=== PATIENT | female | born 1980 | race African-American/Black ===

== ENCOUNTER 2023-11-21 13:01 | Emergency (ER) | payer MEDICAID, SELFPAY ==
[2023-11-21 13:09] VITALS: BP 120/80; PULSE 67; RESP 14; TEMP 36.2; O2SAT 98; BMI 24.9
--- NOTE | 2023-11-21 13:41 | XR_ITS ---
Patient: ANDREW ENCINAS Facility:?[facility] Patient ID:?[id number] Site Patient ID:?[id number]. Site :?[id number] Study:?XRay-Abdomen 2 VIEW-11/21/2023 2:29:24 PM Ordering Physician:EMMIE Final Report: Indication: ABD PAIN 2 MONTHS Technique: One upright view, 2 supine views of the abdomen.. Comparison: None. Findings: Nonobstructive bowel gas pattern. No large pneumoperitoneum. Visualized lung bases are clear. Mild stool burden in the descending colon. Impression: Mild stool burden in the descending colon. Nonobstructive bowel gas pattern. Dictated by Sandoval Borjas MD @ 11/21/2023 2:46:12 PM Signed by:?Sandoval Borjas MD @11/21/2023 2:46:12 PM (Electronic Signature)
--- NOTE | 2023-11-21 13:46 | ED.GENADULT ---
HPI - General Adult General Chief complaint: Abdominal Pain Stated complaint: stomach pain Time Seen by Provider: 11/21/23 13:23 Source: patient Mode of arrival: ambulatory Limitations: no limitations History of Present Illness HPI narrative: Patient is a 43-year-old woman who presents for evaluation of abdominal pain which has been ongoing for the past couple of months. She says she has pain everyday the, it is in the periumbilical and epigastric area. It is worsened with eating or drinking. She does note a history of constipation, has bowel movement about twice a week. She uses MiraLax sporadically. She gets regular periods, does not note any change in her abdominal pain with periods. She does note that she has heavy bleeding and periods last about 10 days, but this is an unrelated issue. She has had some nausea, she has had no vomiting. No diarrhea, black or bloody stools. No urinary symptoms. No new sexual partners. Has not been seen for this previously, has not tried any medications. No abdominal surgeries. Related Data Previous Rx's Medication Instructions Recorded omeprazole 40 mg capsule,delayed 40 mg PO DAILY #14 caps 11/21/23 release potassium chloride 20 mEq 20 meq PO DAILY #10 tabs 11/21/23 tablet,extended release Allergies Allergy/AdvReac Type Severity Reaction Status Date / Time No Known Drug Allergies Allergy Verified 11/21/23 13:13 Review of Systems Status of ROS: Reports: 10 or more systems reviewed and unremarkable except as noted in History and below [facility] Social History Smoking Status: Never smoker Do you use any of these nicotine containing products: None How often do you have a drink containing alcohol: never How often do you have six or more drinks on one occasion: Never AUDIT-C Alcohol total score: 0 Non-prescribed substance use: denies use service: No Exam Narrative: Exam Narrative: Vital signs as noted above. In general, an alert, well-appearing patient. Head: Normocephalic, atraumatic. Eyes: Pupils are equal reactive. Extraocular movements are full. Conjunctivae are normal. ENT: Mucous membranes are moist. Throat is normal. Neck: Supple without lymphadenopathy. Heart: Regular rate and rhythm. No murmur or rub. Lungs: Clear bilaterally. No increased work of breathing, crackles or wheezes. Abdomen: Soft, nondistended. Some epigastric and periumbilical tenderness without rebound guarding or rigidity. No lower abdominal tenderness. Extremities: Well perfused. No edema. No calf tenderness. Pulses intact. Neurologic: Patient is alert and oriented to person and place. Speech is fluent. Face is symmetric. Moves all extremities equally. Affect: Normal. Skin: Warm and dry. Well perfused. Const: Vital Signs, click to edit/add: Vital Signs - 24 hr 11/21/23 13:09 11/21/23 16:25 Temperature 97.1 F L Pulse Rate [Right Pulse Oximeter] 67 65 Respiratory Rate 14 18 Blood Pressure [Ri ght Upper Arm] 120/80 140/93 H Pulse Oximetry 98 100 Oxygen Delivery Me thod Room Air Room Air Course Course ED Course: Abdominal exam is benign, patient presents for daily pain for couple of months without red flag symptoms. Will check some basic labs, I think it is reasonable to do an x-ray and see if she has significant stool burden as constipation may be playing a role in this. Also consider gastritis, peptic ulcer disease, gallbladder or pancreatic disease. Workup here is pretty unremarkable, if her sodium was normal but potassium was low at 2.8. Magnesium was added on but is pending. The remainder of her metabolic panel was unremarkable. CBC was normal, white count of 4.5 hemoglobin of 12.5. UA was negative, UPT was negative. Liver function tests CRP and lipase are all normal. Abdominal x-ray shows normal bowel gas pattern, she does not have a significant stool burden. Final radiology read as follows:Findings: Nonobstructive bowel gas pattern. No large pneumoperitoneum. Visualized lung bases are clear. Mild stool burden in the descending colon. Impression: Mild stool burden in the descending colon. Nonobstructive bowel gas pattern. I have discussed all this with her. For now, I have recommended that we try a proton pump inhibitor for the next couple weeks, I have given her potassium replacement for the next 10 days or so, she had 50 mEq here and 20 a day for the next 10 days. Primary care follow-up in the next 1-2 weeks for recheck. Return at any time for acute worsening symptoms, bloody stools, severe pain, fevers vomiting etcetera. Vital Signs Vital signs: Initial Vital Signs Temperature 97.1 F L 11/21/23 13:09 Temperature Source Temporal Artery Scan 11/21/23 13:09 Pulse Rate 67 11/21/23 13:09 Pulse Rhythm Regular 11/21/23 13:09 Pulse Strength 3+ Normal 11/21/23 13:09 Respiratory Rate 14 11/21/23 13:09 Blood Pressure 120/80 11/21/23 13:09 Blood Pressure Mean 93 11/21/23 13:09 Blood Pressure Position Sitting 11/21/23 13:09 Pulse Oximetry 98 11/21/23 13:09 Oxygen Delivery Method Room Air 11/21/23 13:09 Vital Signs Temperature 97.1 F L 11/21/23 13:09 Pulse Rate 67 11/21/23 13:09 Respiratory Rate 14 11/21/23 13:09 Blood Pressure 120/80 11/21/23 13:09 Pulse Oximetry 98 11/21/23 13:09 Oxygen Delivery Method Room Air 11/21/23 13:09 Temperature 97.1 F L 11/21/23 13:09 Pulse Rate 65 11/21/23 16:25 Respiratory Rate 18 11/21/23 16:25 Blood Pressure 140/93 H 11/21/23 16:25 Pulse Oximetry 100 11/21/23 16:25 Oxygen Delivery Method Room Air 11/21/23 16:25 Medications Administered Medications: Discontinued Medications Generic Name Dose Route Start Last Admin Trade Name Matt PRN Reason Stop Dose Admin Potassium Bicarbonate 50 meq 11/21/23 14:58 11/21/23 15:10 Potassium Bicarb 25 Meq Effervescent Tab PO 11/21/23 14:59 50 meq ONCE ONE Administration Medical Decision Making Lab Data Labs: Lab Results 11/21/23 11/21/23 Range/Units 13:58 15:15 WBC 4.55 (4.50-11.00) K/uL RBC 4.15 (4.00-5.20) m/uL Hgb 12.5 (12.0-16.0) gm/dL Hct 36.9 (33.0-51.0) % MCV 89 (80-100) fL MCH 30 (26-34) pg MCHC 34 (32-36) gm/dL RDW Coeff of [place] 12.9 (11.5-15.5) % Plt Count 239 (140-440) K/uL Neut % (Auto) 55.9 (42.0-72.0) % Lymph % (Auto) 34.9 (20-44) % [place] % (Auto) 7.5 (0.0-11.0) % Eos % (Auto) 1.1 (0.0-7.0) % Baso % (Auto) 0.4 (0.0-3.0) % Neut # (Auto) 2.54 (1.7-7.0) K/uL Lymph # (Auto) 1.59 (0.90-2.90) K/uL [place] # (Auto) 0.30 (0.00-0.90) K/UL Eos # (Auto) 0.05 (0.00-0.50) K/uL Baso # (Auto) 0.02 (0.00-0.30) K/uL Abs Immat Gran (auto) 0.01 (0.00-0.30) K/uL Imm/Tot Granulo (auto) 0.2 % Sodium 139 (135-149) mmol/L Potassium 2.8 L* (3.6-5.1) mmol/L Chloride 106 (96-114) mmol/L Carbon Dioxide 25 (20-32) mmol/L Anion Gap 8 (7-15) mEq/L BUN 9 (5-24) mg/dL Creatinine 0.6 (0.5-1.5) mg/dL Estimated Creat Clear 114.34 Estimated GFR 115 ml/min Glucose 95 (60-115) mg/dL Calcium 8.8 (8.4-10.6) mg/dL Total Bilirubin 0.6 (0.1-1.5) mg/dL Direct Bilirubin 0.2 (0.0-0.5) mg/dL AST 21 (12-35) U/L ALT 9 (4-35) U/L Alkaline Phosphatase 46 (40-150) U/L C-Reactive Protein < 0.5 L (0.5-1.0) mg/dL Total Protein 7.4 (6.0-8.3) g/dL Albumin 4.3 (3.3-5.0) g/dL Lipase 61 (23-300) U/L Urine Color Yellow (Yellow) Urine Appearance Clear (Clear) Urine pH 6.0 (5.0-8.5) Ur Specific [place] 1.025 (1.000-1.030) Urine Protein Negative (Negative) Urine Glucose (UA) Negative (Negative) Urine Ketones Negative (Negative) Urine Blood Negative (Negative) Urine Nitrite Negative (Negative) Urine Bilirubin Negative (Negative) Urine Urobilinogen 1.0 (0.2-1.0) Ur Leukocyte Esterase Negative (Negative) Urine RBC 0-2 (0-2) Urine WBC 0-2 (0-5) Ur Squamous Epith Cells Moderate A (None-Few) Urine Bacteria Moderate A (None) Urine HCG, Qual Negative (Negative) Discharge Plan Discharge Clinical Impression: Abdominal pain, Hypokalemia Patient Disposition: Home, Self-Care Condition: Stable Instructions: Hypokalemia (ED), Abdominal Pain (ED) Additional Instructions: I would recommend a trial of omeprazole, 40 mg daily as prescribed. Please follow-up with primary care in the next 1-2 weeks for recheck. If you have significant worsening at any time, new symptoms such as vomiting, fever, black or bloody stools, return to the emergency department. Your potassium was low today. I would recommend replacement over the next 7-10 days, increase potassium rich foods, recheck with primary care. Your other labs were normal, and your x-ray was normal as well. Prescriptions: New potassium chloride 20 mEq tablet extended release 20 meq PO DAILY Qty: 10 2RF omeprazole 40 mg capsule,delayed release(DR/EC) 40 mg PO DAILY Qty: 14 2RF Follow Up/Referrals: Alysha Farmer, MEHRAN [Primary Care Provider] - Stand Alone Forms: [employer] Info Instructions
[2023-11-21 14:08] LABS: Basophils Absolute Auto 0.02 K/uL (0.00-0.30); Basophils Percent Auto 0.4 % (0.0-3.0); Eosinophils Absolute Auto 0.05 K/uL (0.00-0.50); Eosinophils Percent Auto 1.1 % (0.0-7.0); Hematocrit 36.9 % (33.0-51.0); Hemoglobin* 12.5 gm/dL (12.0-16.0); Immature Granulocytes Abs Auto 0.01 K/uL (0.00-0.30); Immature Granulocytes Pct Auto 0.2 %; Lymphocytes Absolute Auto 1.59 K/uL (0.90-2.90); Lymphocytes Percent Auto 34.9 % (20-44); Mean Corpuscular HGB Conc 34 gm/dL (32-36); Mean Corpuscular Hemoglobin 30 pg (26-34); Mean Corpuscular Volume 89 fL (80-100); Monocytes Percent Auto 7.5 % (0.0-11.0); Neutrophils Absolute Auto 2.54 K/uL (1.7-7.0); Neutrophils Percent Auto 55.9 % (42.0-72.0); Platelet Count* 239 K/uL (140-440); RDW Coefficient of Variation % 12.9 % (11.5-15.5); Red Blood Count 4.15 m/uL (4.00-5.20); White Blood Count* 4.55 K/uL (4.50-11.00)
[2023-11-21 14:13] LABS: Slide Review Reflex No
[2023-11-21 14:28] LABS: Chloride* 106 mmol/L (96-114); Sodium* 139 mmol/L (135-149)
[2023-11-21 14:30] LABS: Albumin* 4.3 g/dL (3.3-5.0)
[2023-11-21 14:31] LABS: Creatinine* 0.6 mg/dL (0.5-1.5); Est. Creatinine Clearance* 114.34; Estimated Glomerular Filt Rate 115 ml/min; Lipase* 61 U/L (23-300)
[2023-11-21 14:32] LABS: Anion Gap 8 mEq/L (7-15); Aspartate Amino Transferase* 21 U/L (12-35); Bilirubin Direct* 0.2 mg/dL (0.0-0.5); Bilirubin Total* 0.6 mg/dL (0.1-1.5); Blood Urea Nitrogen* 9 mg/dL (5-24); Calcium* 8.8 mg/dL (8.4-10.6); Carbon Dioxide* 25 mmol/L (20-32); Glucose* 95 mg/dL (60-115); Total Protein* 7.4 g/dL (6.0-8.3)
[2023-11-21 14:33] LABS: Alanine Aminotransferase* 9 U/L (4-35); Alkaline Phosphatase* 46 U/L (40-150)
[2023-11-21 14:35] LABS: C Reactive Protein* < 0.5 mg/dL (0.5-1.0); Potassium* 2.8 mmol/L (3.6-5.1)
[2023-11-21] MEDS: POTASSIUM BICARB 25 MEQ EFFERVESCENT TAB 50 MEQ PO (15:10)
[2023-11-21 15:23] LABS: Appearance Urine Clear (Clear); Bilirubin Urine Negative (Negative); Blood Urine Negative (Negative); Color Urine Yellow (Yellow); Glucose Urine Negative (Negative); Ketones Urine Negative (Negative); Leukocyte Esterase Urine Negative (Negative); Nitrite Urine Negative (Negative); Protein Urine Negative (Negative); Specific Gravity Urine 1.025 (1.000-1.030)
[2023-11-21 15:25] LABS: Ur HCG Qualitative* Negative (Negative)
[2023-11-21 15:29] LABS: RBC Urine 0-2 (0-2); Squamous Epithelial Cell Urine Moderate (None-Few); WBC Urine 0-2 (0-5)
[2023-11-21 15:30] LABS: Bacteria Urine Moderate
[2023-11-21 16:25] VITALS: BP 140/93; PULSE 65; RESP 18; O2SAT 100
== END 2023-11-21 16:29 | disposition home or self-care (01) ==
PROVIDERS: Emergency Provider Emergency Medicine; PCP Nurse Practitioner Family
DX: R10.9 Unspecified abdominal pain (principal); E87.6 Hypokalemia
CPT/HCPCS: 36415; 74019; 80048; 80076; 81001; 81025; 83690; 83735; 85025; 86140; 87086; 99283; 99284; A9270

== ENCOUNTER 2024-04-15 00:28 | Emergency (ER) | payer MEDICAID, SELFPAY ==
[2024-04-15 00:33] VITALS: BP 160/73; PULSE 68; RESP 20; TEMP 36.7; O2SAT 99; BMI 24.3
[2024-04-15 00:45] VITALS: RESP 16; O2SAT 99
[2024-04-15 00:50] LABS: Appearance Urine Clear (Clear); Bilirubin Urine Negative (Negative); Blood Urine Negative (Negative); Color Urine Yellow (Yellow); Glucose Urine Negative (Negative); Ketones Urine Negative (Negative)
[2024-04-15 00:51] LABS: Leukocyte Esterase Urine Negative (Negative); Nitrite Urine Negative (Negative); Protein Urine Negative (Negative); Ur HCG Qualitative* Negative (Negative); Urobilinogen Urine 0.2 (0.2-1.0); pH Urine 5.5 (5.0-8.5)
--- NOTE | 2024-04-15 00:53 | ED_ITS ---
HPI - General Adult General Chief complaint: Unspecified Complaint, Adult Stated complaint: chest pain, headache Time Seen by Provider: 04/15/24 00:37 Source: patient Mode of arrival: ambulatory Limitations: no limitations History of Present Illness HPI narrative: 43-year-old female presents to the emergency department with a 2 week history of intermittent headache, myalgias and chest pain. Chest pain as intermittent and does not follow-up pattern. It is not exertional, not necessarily with rest, can somewhat be reproduced with palpation. No shortness of breath. No productive cough. No hemoptysis. Appetite normal. Has not tried taking any Tylenol or ibuprofen to help with symptoms. No neurological changes. No prior history of cardiac disease. No fever, no trauma or injury. No prior history of DVT or PE. Has not made an appointment with primary care. Comes in in the middle of the night on the weekend to emergency department as an out of network patient. Past medical history notable for depression, she does not know which antidepressants she takes but states that was started 2 weeks ago. Her daughter was able to go get the medication from the car for me and it is paroxetine 20 mg once daily. She also takes vitamin-D supplement. No prior history of abdominal surgeries. No allergies. Nonsmoker. ROS is notable for the generalized and chest symptoms as described above, otherwise denies times 12 systems. Related Data Home Medications ?Medication ?Instructions ?Recorded ?Confirmed paroxetine HCl 20 mg tablet 20 mg PO DAILY 04/15/24 04/15/24 Allergies Allergy/AdvReac Type Severity Reaction Status Date / Time No Known Drug Allergies Allergy Verified 04/15/24 00:36 [facility] Medical History (Updated 04/15/24 @ 04:22 by Camilla Cavazos MD) No significant past medical history Surgical History (Updated 04/15/24 @ 04:04 by Kyree Padilla RN) No significant past surgical history Social History Smoking Status: Never smoker Do you use any of these nicotine containing products: None Second hand tobacco smoke exposure: No How often do you have a drink containing alcohol: never How often do you have six or more drinks on one occasion: Never AUDIT-C Alcohol total score: 0 Non-prescribed substance use: denies use service: No Exam Const: Vital Signs, click to edit/add: Vital Signs - 24 hr 04/15/24 00:33 04/15/24 00:45 04/15/24 02:00 Temperature 98.0 F 98.0 F Pulse Rate [Right Pulse Oximeter] 68 74 Respiratory Rate 20 20 Respiratory Rate [ Generalized] 16 Blood Pressure [Ri ght Upper Arm] 160/73 H 132/74 Pulse Oximetry 99 99 Oxygen Delivery Me thod Room Air Room Air 04/15/24 02:00 Temperature 98.0 F Pulse Rate [Right Pulse Oximeter] 74 Respiratory Rate 20 Respiratory Rate [ Generalized] Blood Pressure [Ri ght Upper Arm] 132/74 Pulse Oximetry Oxygen Delivery Me thod Documenting provider has reviewed patient's vital signs: yes Common normals: no apparent distress and alert General appearance: cooperative, comfortable and well kempt HENMT: Common normals: normocephalic Head and scalp: normocephalic Face and sinus: normal facial exam Mouth: oral and palatal mucosa normal Throat: posterior oropharynx normal Eye: Common normals: conjunctivae normal General eye: normal appearance of both eyes Conjunctiva: conjunctiva(e) normal Neck & C-Spine: Common normals: full ROM and no lymphadenopathy Chest: Other: Pain can somewhat be reproduced with palpation of sternum. Resp: Common normals: normal respiratory effort and no use of accessory muscles Effort & inspection: able to speak in complete sentences Cardio: Common normals: regular rate, regular rhythm, S1 normal heart sound, S2 normal heart sound and no murmurs Rate: regular rate Rhythm: regular rhythm Heart sounds: S1 normal and S2 normal GI: Common normals: Normal to inspection, nondistended, normoactive bowel sounds present, soft to palpation, non-tender, no hepatosplenomegaly and no masses Palpation: soft and no hepatosplenomegaly Extremity: Common normals: normal to inspection, normal capillary refill and no pedal edema Neuro: Sensorium/orientation: alert Motor exam: strength 5/5 throughout and no movement abnormalities noted Psych: Common normals: thought process normal Appearance: well kempt Attitude: engaged Activity/motor behavior: appropriate eye contact Mood and affect: euthymic mood Thought process: normal thought process Insight: insight good Judgement: judgment good Skin: Common normals: no rashes or lesions noted General skin exam: no rashes or lesions noted Course Course ED Course: 43-year-old female with vague nonspecific mild symptoms most likely consistent with a viral illness. Chest pain concerning for more worrisome underlying process. Would recommend EKG, basic labs. Swabs for strep, RSV COVID and influenza. Urinalysis. Will give Tylenol 1000 mg p.o. x1 for headache while we await labs. Anticipate discharge on conservative management. Will be going down for computer downtime and 2 minutes Reevaluation(s) Reevaluation #1: Documentation on Sheela Reid: ?Downtime documentation.? Medical decision making white blood cell count normal at 5.39 with hemoglobin of 12.1 platelets of 256.? Sodium 135 potassium 3.2 BUN of 18 with a creatinine of 0.8 D-dimer 0.43 which is normal for her age.? Swabs are negative for COVID, influenza, RSV and strep.? Troponin 0.00.? Procalcitonin less than 0.03.? All labs normal.? EKG showing normal sinus rhythm with a rate of 56.? Mildly bradycardic.? Computer interpreting as some lateral ischemia.? I do not see this present.? Good R-wave progression, upright T-waves.? Normal intervals and axis otherwise.? Appears to be normal EKG. Counseled patient on findings.? Seems consistent with mild viral illness, no signs of cardiac disease, pulmonary embolism, significant inflammation.? Feeling a little better after the Tylenol that was given in the ED.? Counseled on Tylenol and ibuprofen for fever, body aches, headache and comfort.? Alarm symptoms reviewed that would warrant ED presentation.? Written instructions are provided.? Follow-up with primary care if not improving in 1 weeks time. Assessment viral illness with myalgias and chest wall pain, plan as above. Vital Signs Vital signs: Initial Vital Signs Temperature 98.0 F 04/15/24 00:33 Temperature Source Temporal Artery Scan 04/15/24 00:33 Pulse Rate 68 04/15/24 00:33 Respiratory Rate 20 04/15/24 00:33 Blood Pressure 160/73 H 04/15/24 00:33 Blood Pressure Mean 102 04/15/24 00:33 Blood Pressure Position Sitting 04/15/24 00:33 Pulse Oximetry 99 04/15/24 00:33 Oxygen Delivery Method Room Air 04/15/24 00:33 Vital Signs Temperature 98.0 F 04/15/24 00:33 Pulse Rate 68 04/15/24 00:33 Respiratory Rate 20 04/15/24 00:33 Blood Pressure 160/73 H 04/15/24 00:33 Pulse Oximetry 99 04/15/24 00:33 Oxygen Delivery Method Room Air 04/15/24 00:33 Temperature 98.0 F 04/15/24 02:00 Pulse Rate 74 04/15/24 02:00 Respiratory Rate 20 04/15/24 02:00 Blood Pressure 132/74 04/15/24 02:00 Pulse Oximetry 99 04/15/24 02:00 Oxygen Delivery Method Room Air 04/15/24 02:00 Medications Administered Medications: Discontinued Medications Generic Name Dose Route Start Last Admin Trade Name Freq PRN Reason Stop Dose Admin Acetaminophen 1,000 mg 04/15/24 00:51 04/15/24 04:00 Acetaminophen 500 Mg Tablet PO 04/15/24 00:52 1,000 mg ONCE ONE Administration Medical Decision Making Lab Data Lab results reviewed: Yes I reviewed the patient's lab results Lab results narrative: All reassuring Labs: Lab Results 04/15/24 04/15/24 Range/Units 00:38 00:51 Urine Color Yellow (Yellow) Urine Appearance Clear (Clear) Urine pH 5.5 (5.0-8.5) Ur Specific [place] 1.010 (1.000-1.030) Urine Protein Negative (Negative) Urine Glucose (UA) Negative (Negative) Urine Ketones Negative (Negative) Urine Blood Negative (Negative) Urine Nitrite Negative (Negative) Urine Bilirubin Negative (Negative) Urine Urobilinogen 0.2 (0.2-1.0) Ur Leukocyte Esterase Negative (Negative) Urine HCG, Qual Negative (Negative) POC Troponin I 0.00 L (0.01-0.04) ng/ml Discharge Plan Discharge Clinical Impression: Pain, chest wall Patient Disposition: Home, Self-Care Condition: Improved Additional Instructions: Downtime Discharge instructions on Sheela Reid: As we discussed, your symptoms do seem like they are from a mild viral infection.? Your blood tests do not show any signs of anemia, severe infection, significant inflammation, heart damage, blood clots in the lungs, COVID, influenza, or RSV.? Chances are, this is a different virus causing your symptoms as there are thousands and we only have the ability to test for a few.? Symptoms will tend to last up to about 3 weeks.? I am not concerned about the type of chest pain that you are having.? This seems like it is related to inflammation from the virus as there are no signs of low oxygen, heart problems or blood clots.? I would recommend that use Tylenol 1000 mg every 6 hours and or ibuprofen 600 mg every 6 hours.? If you continue to have symptoms, I would jenelle mmend that you follow-up with your primary care doctor in about a week to recheck things.? You should come to an emergency department if you have severe shortness of breath, persistent chest pain especially on exertion, coughing up blood, persistent vomiting or bloody diarrhea. Activity Level: No Restrictions Prescriptions: No Action paroxetine HCl 20 mg tablet 20 mg PO DAILY Follow Up/Referrals: Alysha Farmer, [employer] [Primary Care Provider] -
--- OUTSIDE RECORDS SUMMARY | 2024-04-15 00:55 | XMS_ITS | Clinical Summary ---
Author Organization [facility] er Address [address] [place] [id number] Care Team Providers Care Bridges Supervisor Name Role Phone None, Pcp Primary Care Provider Unavailabl e Allergies No known active allergies Medications Medication Sig Dispensed Refills Start Date End Date Status albuterol HFA (PROVENTIL HFA;VENTOLIN HFA) 108 (90 Base) MCG/ACT inhaler Inhale every 30 minutes as needed 11/02/2022 Active ARIPiprazole (ABILIFY) 2 MG tablet Take 1 tablet (2 mg total) by mouth 1 (one) time each day 02/10/2023 Active escitalopram (LEXAPRO) 20 MG tablet Take 1 tablet (20 mg total) by mouth 1 (one) time each day Active traZODone (DESYREL) 50 MG tablet Take 1 tablet (50 mg total) by mouth every night 02/10/2023 Active Vortioxetine HBr (Trintellix) 5 MG tablet Take 5 mg by mouth daily Active Active Problems No known active problems Social History Tobacco Use Types Packs/Day Years Used Date Smoking Tobacco: Never Smokeless Tobacco: Never Tobacco Cessation:Counseling Given: Not Answered Alcohol Use Standard Drinks/Week Comments Never 0 (1 standard drink = 0.6 oz pur e alcohol) Sex and Gender Information Value Date Recorded Sex Assigned at Not on file Gender Identity Not on file Sexual Orientation Not on file Last Filed Vital Signs Vital Sign Reading Time Taken Comments Blood Pressure 131/91 09/29/2023 3:06 PM CDT Pulse 78 09/29/2023 3:06 PM CDT Temperature 36.8 ??C (98.2 ??F) 09/29/2023 2:09 PM CD T Respiratory Rate 15 09/29/2023 3:06 PM CDT Oxygen Saturation 100% 09/29/2023 3:06 PM CDT Inhaled Oxygen Concentration - - Weight - - Height - - Body Mass Index - - Plan of Treatment Health Maintenance Due Date Last Done Comments DTaP,Tdap,and Td Vaccines (1 - Tdap) 2000 COVID-19 Vaccine (3 - 2023-2 5 season) 2024 12/24/2021, 11/12/2021 Influenza Vaccine (#1) 2024 Mammogram 10/31/2024 11/01/2023, 11/01/2023 Pap Smear 11/09/2024 11/09/2021 HPV Vaccines Aged Out No longer eligi ble based on patient's age to complete this topic Pneumococcal Vaccine: Pediatrics (0 to 5 Years) and At-Risk Patients (6 to 64 Years) Aged Out No longer eligible b ased on patient's age to complete this topic Care Teams Bridges Supervisor Relationship Specialty Start Date End Date None, Pcp [address] [facility] [place] [address] PCP - General Cofounder 03/11/23
--- OUTSIDE RECORDS SUMMARY | 2024-04-15 00:55 | XMS_ITS | Clinical Summary ---
Author Organization [facility] Address [place], [place] [address] Care Team Providers Care Steam Finisher Name Role Phone Alysha Farmer NICKOLAS Primary Care Provider [phone] Allergies Active Allergy Reactions Criticality Noted Date Comments Pollen Extracts Cough 11/02/2022 Medications Medication Sig Dispensed Refills Start Date End Date Status sertraline (ZOLOFT) 50 mg tablet Take 50 mg by mouth once daily. 10/18/2023 Active cholecalciferol (Vitamin D) 1,000 unit capsuleIndications:V itamin D deficiency Take 1 Capsule (1,000 units) by mouth once daily. 90 Capsule 3 11/22/2023 Active polyethylene glycoL (MIRALAX) 17 gram/scoop powderIndications:Co nstipation, acute Mix 1-2 scoops (17-34 g) in liquid then take by mouth once daily. 850 g 12/14/2023 Active Active Problems Problem Noted Date Diagnosed Date Hidradenitis suppurativa 12/14/2023 H/o H. 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 Pap smear for cervical cancer screening 11/02/19 Overview (12/23/2021): 11/09/2021 NIL/HPV negative Plan: Pap/HPV due 11/2026 Resolved Problems Problem Noted Date Diagnosed Date Resolved Date Nexplanon in place 08/24/2022 Overview (08/24/2022): placed 08/24/22 5 year removal date Aug 2027 Encounters Date Type Department Care Team Description 03/26/2024 Nurse Triage [facility] [address] [place] [address] Savannah Matute, CHARITY Abdominal Pain 02/07/2024 Patient Outreach [facility] Care Management - Care Management Navigation/[facility] [address] [place] [address] Kiara Flores [facility] Health (Care Guide Community Resource Navigation ) 01/26/2024 3:40 PM CDT Office Visit [facility] [address] [place] [address] Mihaela Ibarra, DO Contraception (Nexplanon removal) 01/26/2024 Travel 01/18/2024 3:15 PM CDT Office Visit [facility] [address] [place] [address] Erika Miller PA Concerns (Hard to pass bowel movements- last BM 01/17) 01/18/2024 Travel from Last 3 Months Immunizations Name Administration Dates Next Due COVID-19 vaccine (Moderna 100mcg/0.5mL) HARSHA COLIN 12/24/2021,11/12/2021 Family History Medical History Relation Name Comments Cancer-breast No Family History Cancer-ovarian No Family History Social History Tobacco Use Types Packs/Day Years Used Date Smoking Tobacco: Never Smokeless Tobacco: Never Tobacco Cessation:Counseling Given: Yes Alcohol Use Standard Drinks/Week Comments Never 0 (1 standard drink = 0.6 oz pur e alcohol) PHQ-2 Answer Date Recorded PHQ-2 TOTAL SCORE 0 10/31/2023 Social Connections Answer Date Recorded Frequency of Communication with Friends and Fami ly 0 01/26/2024 Financial Resource Strain Answer Date R ecorded Difficulty of Paying Living Expenses 2 01/26/2024 Difficulty of Paying Living Expenses 1 01/26/2024 Food Insecurity Answer Date Recorded Worried About Running Out of Food in the Last Ye ar 1 01/26/2024 Transportation Needs Answer Date Record ed Lack of Transportation (Medical) 1 01/26/2024 Housing Stability Answer Date Recorded Unable to Pay for Housing in the Last Year 1 01/26/2024 Sex and Gender Information Value Date Recorded Sex Assigned at Not on file Gender Identity Not on file Sexual Orientation Not on file Obstetrics History Last Filed Vital Signs Vital Sign Reading Time Taken Comments Blood Pressure 112/73 01/26/2024 3:47 PM CDT Pulse 76 01/26/2024 3:47 PM CDT Temperature 36.9 ??C (98.4 ??F) 10/31/2023 3:46 PM CD T Respiratory Rate 18 11/02/2022 7:58 PM CDT Oxygen Saturation 99% 01/18/2024 3:18 PM CDT Inhaled Oxygen Concentration - - Weight 66.7 kg (147 lb) 01/26/2024 3:47 PM CDT Height 169.5 cm (5' 6.73) 10/31/2023 3:46 PM CD T Body Mass Index 23.21 10/31/2023 3:46 PM CDT Plan of Treatment Health Maintenance Due Date Last Done Comments Tdap 1992 Tetanus booster 2001 COVID-19 vaccine series () 03/04/2024 12/24/2021, 11/12/2021 Influenza for age 9-49 03/04/2024 BMI (ht and wt on same day) for age 18+ 10/30/2024 10/31/2023, 08/10/2022, 04/23/2022, Additional history exists Depression screening for age 12+ 10/30/2024 10/31/2023, 05/07/2022, 04/14/2022 Pap test for age 21-65 11/09/2026 11/09/2021, 2021 HIV for age 15-65 Completed 10/31/2023 Hepatitis C screening for age 18-79 Completed 10/31/2023 Pneumococcal series for age 6-64 Aged Out No longer eligible based on patient's age to complete this topic Procedures Procedure Name Priority Date/Time Associated Diagnosis Comments ANTI HIV 1/2 Routine 10/31/2023 4:56 PM CDT Encounter for screening for HIV ANTI HCV Routine 10/31/2023 4:56 PM CDT Encounter for HCV screening test for high risk patient CASEWORKER THIN PREP PAP SCREEN IMAGED Routine 11/09/2021 3:40 PM CDT Screening for malignant neoplasm of cervix from Last 3 Months or Most Recently Relevant to Health Maintenance Results * ANTI HCV (10/31/2023 4:56 PM CDT) [facility] HEPATITIS C ANTIBODY Non-Reacti ve Non-React shayna 11/01/2023 3:06 PM CDT [facility] Comment:Please note, per www .CDC.gov: If a patient is known to be at high risk of HCV infection, or is symptomatic, and the physician's suspicion of HCV infection is high, HCV RNA testing is often employed and is of diagnostic value, even after an initial negative anti-HCV test result. Blood BLOOD SPECIMEN / Unknown Venipuncture / Unknown 10/31/2023 4:56 PM CDT 10/31/2023 4:57 PM CDT Bernadette Bethea MD SEND OUTS Performing Organization Address City/[facility]/ZIP Co de Phone Number [facility] [address] [place] [address], * ANTI HIV 1/2 (10/31/2023 4:56 PM CDT) [facility] HIV-1/HIV-2 SCREEN Non-Reacti ve Non-Reacti ve 11/01/2023 3:00 PM CDT [facility] Comment:HIV-1 p24 and HIV-1/ HIV-2 Ab Not Detected. Blood BLOOD SPECIMEN / Unknown Venipuncture / Unknown 10/31/2023 4:56 PM CDT 10/31/2023 4:57 PM CDT Bernadette Bethea MD SEND OUTS [facility] [address] [place] [address], * CASEWORKER THIN PREP PAP SCREEN IMAGED [[id number]] (11/09/2021 3:40 PM CDT) [facility] Case Report Gynecologic Cytology Report ? Case: [id number] ? Authorizing Provider: ??Alysha Farmer NP ?Collected: ? 11/09/2021 1540 ? Ordering Location: ? [facility] [employer] [place] ?Received: ?11/09/2021 1540 ? Clinic ? First Screen: ?Trevor Yang ? Specimen: ?CASEWORKER ThinPrep Vial Screening, Cervical ? 11/24/2021 12:[address] [facility] INTERPRETATION/ RESULT NEGATIVE FOR INTRAEPITHELIAL LESION OR MALIGNANCY (NIL) (none) 11/24/2021 12:27 PM CDT [facility]- ENTRAL LABORATORY IMEN ADEQUACY Satisfactory for evaluation No endocervical component seen 11/24/2021 12:27 PM CDT [facility]-C ENTRAL LABORATORY HPV REQUEST HPV if ASCUS 11/24/2021 12:27 PM CDT [facility] Date of LMP 10/26/2021 11/24/2021 12:27 PM CDT [facility] Last Pap Date uncertain 11/24/2021 12:27 PM CDT [facility] Last Pap Result NIL 12:27 PM CDT [facility] Abnormal Pap or [place] Bx in last 5 years No 11/24/2021 12:27 PM CDT [facility] Menstrual Status Regular Periods 11/24/2021 12:27 PM CDT [facility] [place] Bx Done Today No 11/24/2021 12:27 PM CDT [facility] Additional Information None given 11/24/2021 12:27 PM CDT [facility] Comment: Cytology is screened at [facility] Laboratory - [address], [place] [address] and [facility] - [address] [place] [address] and [facility] - [address] [place] [address] Interpreted at [facility] - [address], [place] [address] Automated Review Successful 11/24/2021 12:27 PM CDT [facility] Comment:Specimen processed s uccessfully by automated baggagemaster device, ThinPrep Imaging System, [employer] Note The pap test is a screening technique, not a diagnostic procedure. It is used primarily to screen for squamous cancers and precursor lesions. Published studies have shown that it is subject to both false negative and false positive results. The pap test should not be used as the sole means to diagnose or exclude pre-malignant and malignant lesions. 11/24/2021 12:27 PM CDT [facility] Other (Cervical) Non-Blood / Unknown 11/09/2021 3:40 PM CDT 11/09/2021 3:40 PM CDT Alysha Farmer NP PATHOLOGY/CYTOLOGY [facility]AL LABORAT[facility] 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 [place] [address] PCP - General Nurse Practitioner - Family 11/10/21
[2024-04-15 02:00] VITALS: BP 132/74; PULSE 74; RESP 20; TEMP 36.7; O2SAT 99
[2024-04-15] MEDS: ACETAMINOPHEN 500 MG TABLET 1000 MG PO (04:00)
[2024-04-15 05:09] LABS: D Dimer Quantitative* 0.43 ug/ml (0.00-0.50)
[2024-04-15 05:11] LABS: PCR FLU A Negative PCR FLU A (Negative); PCR FLU B Negative PCR FLU B (Negative); PCR RSV Negative PCR RSV (Negative); SARS PCR* Negative SARS-CoV-2 (Negative); Strep A DNA Probe* NOT DETECTED (Not Detectd)
[2024-04-15 05:16] LABS: Hematocrit 35.8 % (33.0-51.0); Hemoglobin* 12.1 gm/dL (12.0-16.0); Mean Corpuscular HGB Conc 34 gm/dL (32-36); Mean Corpuscular Hemoglobin 31 pg (26-34); Mean Corpuscular Volume 91 fL (80-100); Monocytes Percent Auto 6.9 % (0.0-11.0); Platelet Count* 256 K/uL (140-440); Red Blood Count 3.95 m/uL (4.00-5.20); White Blood Count* 5.39 K/uL (4.50-11.00)
[2024-04-15 05:17] LABS: Basophils Percent Auto 0.4 % (0.0-3.0); Eosinophils Percent Auto 1.5 % (0.0-7.0); Immature Granulocytes Pct Auto 0.2 %; Procalcitonin* < 0.03 ng/mL (<0.50); Slide Review Reflex No
[2024-04-15 05:18] LABS: Anion Gap 9 mEq/L (7-15); Blood Urea Nitrogen* 18 mg/dL (5-24); C Reactive Protein* < 0.5 mg/dL (0.5-1.0); Calcium* 9.1 mg/dL (8.4-10.6); Carbon Dioxide* 24 mmol/L (20-32); Chloride* 102 mmol/L (96-114); Creatinine* 0.8 mg/dL (0.5-1.5); Est. Creatinine Clearance* 89.08; Estimated Glomerular Filt Rate 94 ml/min; Glucose* 62 mg/dL (60-115); Potassium* 3.2 mmol/L (3.6-5.1); Sodium* 135 mmol/L (135-149)
== END 2024-04-15 02:00 | disposition home or self-care (01) ==
LOC: ED 00:53
PROVIDERS: Emergency Provider Family Medicine; PCP Nurse Practitioner Family
DX: R07.9 Chest pain, unspecified (principal)
CPT/HCPCS: 36415; 80048; 81003; 81025; 84145; 84484; 85025; 85379; 86140; 87631; 87651; 93005; 99284; A9270

== ENCOUNTER 2024-07-01 23:30 | Emergency (ER) | payer MEDICAID, SELFPAY ==
[2024-07-01 23:55] VITALS: BP 155/93; PULSE 70; RESP 20; O2SAT 100; BMI 23.0
--- NOTE | 2024-07-02 00:39 | CRLHL7_ITS ---
For Patients: As a result of the Cures Act, medical imaging exams and procedure reports are released immediately into your electronic medical record. You may view this report before your referring provider. If you have questions, please contact your health care provider. Indication: Back pain following fall. Technique: Three views of the thoracic spine. Comparison: None. Findings: No acute fracture, dislocation, or suspicious osseous lesion. The thoracic vertebral bodies maintain their normal heights with preserved kyphosis. No significant spondylolisthesis. Minimal multilevel spondylosis. No advanced disc space height loss. No acute soft tissue abnormality. Impression: No acute osseous abnormality. Dictated by Hubert Dent MD @ 07/02/2024 1:11:30 AM (Electronically Signed)
--- NOTE | 2024-07-02 00:39 | CRLHL7_ITS ---
For Patients: As a result of the Cures Act, medical imaging exams and procedure reports are released immediately into your electronic medical record. You may view this report before your referring provider. If you have questions, please contact your health care provider. Indication: Back pain following fall. Technique: Two views of the lumbar spine. Comparison: None. Findings: No acute fracture, dislocation, or suspicious osseous lesion. The lumbar vertebral bodies maintain normal heights with preserved lordosis. Mild grade 1 anterolisthesis at L5-S1 with probable chronic spondylolysis. No advanced spondylosis degenerative disc space height loss. No acute soft tissue abnormality. Impression: No acute osseous abnormality. Dictated by Hubert Dent MD @ 07/02/2024 1:13:17 AM (Electronically Signed)
--- NOTE | 2024-07-02 00:40 | ED.BACK ---
HPI - Back Pain/Injury General Date Seen: 07/02/24 Chief Complaint: Back Injury/Pain Stated Complaint: back pain, dizzy Time Seen by Provider: 07/01/24 23:52 Source: patient Mode of arrival: ambulatory Limitations: no limitations History of Present Illness HPI Narrative: Patient is a 43-year-old female presenting to emergency department for upper midline back pain. She states back in mid April she fell at work hurting her back. She eventually went to urgent care and was seen and was given naproxen Flexeril but no imaging was done. She states after that she seemed to be feeling better. About a week ago she states she started having the back pain again is says a radiates down to her shoulders and lumbar spine. States worse the pain is midline between her shoulder blades. Denies chest pain or shortness of breath. Denies any lightheadedness. She states the pain gets better when she lays down. Does state when the pain comes on she will feel slightly dizzy and diaphoretic. Those symptoms again go away when she lays back down. She currently is not feeling dizzy rate now but she does states she feels sweaty. I do not notice any sweat forming on her. Denies any sick contacts, cough, fevers. Denies fatigue, weakness, numbness. Does also complain will mild neck pain and headache that comes on also with the back pain. Related Data Home Medications ?Medication ?Instructions ?Recorded ?Confirmed paroxetine HCl 20 mg tablet 20 mg PO DAILY 04/15/24 04/16/24 Previous Rx's ?Medication ?Instructions ?Recorded cyclobenzaprine 10 mg tablet 10 mg PO TID PRN muscle spasm #15 07/02/24 tabs naproxen 500 mg tablet 500 mg PO BID #30 tabs 07/02/24 Allergies Allergy/AdvReac Type Severity Reaction Status Date / Time No Known Drug Allergies Allergy Verified 04/15/24 00:36 Review of Systems Status of ROS: Reports: 10 or more systems reviewed and unremarkable except as noted in History and below [facility] Medical History No significant past medical history Surgical History No significant past surgical history Social History Smoking Status: Never smoker Do you use any of these nicotine containing products: None Second hand tobacco smoke exposure: No How often do you have a drink containing alcohol: never How often do you have six or more drinks on one occasion: Never AUDIT-C Alcohol total score: 0 Non-prescribed substance use: denies use service: No Exam Narrative: Exam Narrative: Const: Well-nourished, Well-developed, in mild distress Eyes: PERRL, no conjunctival injection, and symmetrical lids HENT: Atraumatic external nose and ears. Moist mucous membranes. Neck: Symmetric, trachea midline, No thyromegaly. CVS: RRR, No murmurs or gallops. Peripheral pulses 2+ and equal in all extremities RESP: Unlabored respiratory effort. Clear to auscultation bilaterally. GI: Nontender/Nondistended, No rebound or guarding. MSK:Extremities w/o deformity, Normal Active ROM Skin: Warm, Dry. No rashes or lesions. Neuro: Normal Muscle tone, No focal neurological deficits. Psych: Awake, Alert, & Oriented x3. Appropriate mood and affect. Const: Vital Signs, click to edit/add: Vital Signs - 24 hr 07/01/24 23:55 Pulse Rate [Left P ulse Oximeter] 70 Respiratory Rate 20 Blood Pressure [Ri ght Upper Arm] 155/93 H Pulse Oximetry 100 Oxygen Delivery Me thod Room Air Course Vital Signs Vital signs: Initial Vital Signs Pulse Rate 70 07/01/24 23:55 Pulse Rhythm Regular 07/01/24 23:55 Respiratory Rate 20 07/01/24 23:55 Blood Pressure 155/93 H 07/01/24 23:55 Blood Pressure Mean 113 H 07/01/24 23:55 Blood Pressure Position Sitting 07/01/24 23:55 Pulse Oximetry 100 07/01/24 23:55 Oxygen Delivery Method Room Air 07/01/24 23:55 Vital Signs Pulse Rate 70 07/01/24 23:55 Respiratory Rate 20 07/01/24 23:55 Blood Pressure 155/93 H 07/01/24 23:55 Pulse Oximetry 100 07/01/24 23:55 Oxygen Delivery Method Room Air 07/01/24 23:55 Pulse Rate 70 07/01/24 23:55 Respiratory Rate 20 07/01/24 23:55 Blood Pressure 155/93 H 07/01/24 23:55 Pulse Oximetry 100 07/01/24 23:55 Oxygen Delivery Method Room Air 07/01/24 23:55 MDM - Back Pain/Injury MDM Narrative Medical decision making narrative: Patient is a 43-year-old female presenting to the emergency department for back pain. He seems most likely musculoskeletal in nature. She is otherwise doing well and aortic dissection or aortic aneurysm seem very unlikely. She has not had imaging done since her work accident so will do a x-ray of her lumbar and thoracic spine. She is also having some symptoms that may be viral related. She initially agreed to COVID/flu/RSV swab but later declined. She is not having any chest pain or shortness of breath that is mostly just having headache, dizziness and diaphoresis when her back pain gets worse. Of note when she states she is feeling diaphoretic I do not notice her sweating at all. I do not believe further workup is necessary. X-rays reviewed by myself and the radiologist showed no acute abnormalities. Will discharge her on naproxen and Flexeril. This is what she was prescribed previously which she states helped. She is agreeable to this plan Imaging Data X-ray lumbar spine: Attestation: I have reviewed the pertinent imaging results. Radiologist's impression: No acute osseous abnormality. Dictated by Hubert Dent MD @ 07/02/2024 1:13:17 AM X-ray thoracic spine: Attestation: I have reviewed the pertinent imaging results. Radiologist's impression: No acute osseous abnormality. Dictated by Hubert Dent MD @ 07/02/2024 1:11:30 AM Discharge Plan Discharge Clinical Impression: Back pain Qualifiers: Back pain location: thoracic back pain Chronicity: unspecified Back pain laterality: midline Qualified Code(s): M54.6 - Pain in thoracic spine Patient Disposition: Home, Self-Care Condition: Stable Instructions: Back Pain (ED) Prescriptions: New naproxen 500 mg tablet 500 mg PO BID Qty: 30 0RF cyclobenzaprine 10 mg tablet 10 mg PO TID PRN (Reason: muscle spasm) Qty: 15 0RF No Action paroxetine HCl 20 mg tablet 20 mg PO DAILY Follow Up/Referrals: Alysha Farmer, MEHRAN [Primary Care Provider] - Stand Alone Forms: Track the [facility] Info Instructions
--- NOTE | 2024-07-02 00:45 | ED.NURSE ---
Nurse went to swab for covid/flu/RSV per doctor orders. Patient stated I have none of those symptoms. I do not want the swab. Nurse informed patient of the swab and why we should do it and patient still refusing. notified.
== END 2024-07-02 01:36 | disposition home or self-care (01) ==
PROVIDERS: Emergency Provider Student in an Organized Health Care Education/Training Program; PCP Nurse Practitioner Family
DX: M54.9 Dorsalgia, unspecified (principal)
CPT/HCPCS: 72070; 72100; 87631; 99284

== ENCOUNTER 2025-01-28 14:30 | Outpatient (RCR) | payer MEDICAID, SELFPAY | END 2025-05-08 08:16 | disposition home or self-care (01) | PROVIDERS: PCP Nurse Practitioner Family; Visit Provider Physician Assistant | DX: K59.02 Outlet dysfunction constipation (principal); M54.50 Low back pain, unspecified; R39.16 Straining to void; Z51.89 Encounter for other specified aftercare | CPT/HCPCS: 97110; 97112; 97161; 97535 ==

== ENCOUNTER 2025-04-15 12:44 | Emergency (ER) | payer MEDICAID, SELFPAY ==
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
--- OUTSIDE RECORDS SUMMARY | 2025-04-15 12:47 | XMS_ITS | CCD ---
Author Name Interface, [id number] Address [address] [place] [address] Oncology Address [address] [place] [address] Reason for Visit Social History
--- OUTSIDE RECORDS SUMMARY | 2025-04-15 12:47 | XMS_ITS | Clinical Summary ---
Author Organization [facility] Address [address] [place] [id number] Care Team Providers Care Home Attendant Name Role Phone Erika Miller Primary Care Provider [phone] Allergies Active Allergy Reactions Criticality Noted Date Comments Pollen Extracts Cough 11/02/2022 Medications cholecalciferol (Vitamin D) 1,000 unit capsuleIndications :Vitamin D deficiency Take 1 Capsule (1,000 units) by mouth once daily. 90 Capsule 3 11/22/19 24 Active PARoxetine (PAXIL) 20 mg tablet Take 20 mg by mouth once daily. 03/26/20 24 Active cyclobenzaprine (FLEXERIL) 5 mg tabletIndications: Upper back pain Take 1-2 Tablets (5-10 mg) by mouth 3 times daily if needed for Muscle Spasm. 30 Tablet 04/20/20 24 Active polyethylene glycoL (Miralax) 17 gram/scoop powderIndications: Constipation, unspecified constipation type Mix 1 scoop (17 g) in liquid then take by mouth daily in evening if needed for Constipation . 765 g 1 07/25/19 25 Active wheat dextrin (Benefiber Sugar Free, dextrin,) 3 gram/3.8 gram powdIndications:Di fficulty passing stool,Constipation , unspecified constipation type Mix 1 scoop in liquid then take by mouth once daily in the evening. 350 g 3 07/25/19 25 Active lubiprostone 8 mcg capIndications:Chr onic constipation Take 1 Capsule (8 mcg) by mouth two times daily. 60 Capsule 12/01/19 25 Active cyclobenzaprine (FLEXERIL) 10 mg tabletIndications: Muscle pain Take 0.5-1 Tablets (5-10 mg) by mouth 3 times daily if needed for Muscle Spasm. 30 Tablet 02/26/20 25 Active rifAMPin 300 mg capsuleIndications :Latent tuberculosis Take 2 Capsules (600 mg) by mouth two times daily before meals. 84 Capsule 1 04/05/20 25 Active sertraline (ZOLOFT) 50 mg tablet Take 50 mg by mouth once daily. 10/18/19 24 025 Discontin ued(*Sarah ent states no longer taking) mirtazapine (REMERON) 7.5 mg tablet Take 7.5 mg by mouth at bedtime. 03/26/20 025 Discontin ued(*Sarah ent states no longer taking) naproxen (NAPROSYN) 500 mg tabletIndications: Upper back pain TAKE 1 TABLET(500 MG) BY MOUTH EVERY 12 HOURS NEEDED FOR PAIN OR HEADACHE 28 Tablet 06/07/20 025 Discontin ued(*Sarah ent states no longer taking) bisacodyL (DULCOLAX) 10 mg suppositoryIndicat ions:Difficulty passing stool every 2 days as needed 30 Suppository 1 07/25/19 025 Discontin ued(*Sarah ent states no longer taking) benzonatate 200 mg capsuleIndications :Bronchitis Take 1 Capsule (200 mg) by mouth 3 times daily if needed for Cough. 30 Capsule 11/19/19 025 Discontin ued(*Sarah ent states no longer taking) ondansetron 8 mg disintegrating tabletIndications: Nausea Place 1 Tablet (8 mg) on the tongue every 8 hours if needed for Nausea/Vomit ing. 10 Tablet 11/30/19 25 025 Discontin ued(*Sarah ent states no longer taking) omeprazole 20 mg tabletIndications: Upper abdominal pain Take 1 Tablet (20 mg) by mouth once daily before a meal. 60 Tablet 11/30/19 025 Discontin ued(*Sarah ent states no longer taking) cyclobenzaprine 5 mg tabletIndications: Back pain, unspecified back location, unspecified back pain laterality, unspecified chronicity Take 1 Tablet (5 mg) by mouth 3 times daily if needed for Muscle Spasm. 15 Tablet 11/30/19 025 Discontin ued(*Sarah ent states no longer taking) fluticasone (50 mcg per actuation) nasal solution (FLONASE)Indicatio ns:Nasal discomfort Inhale 2 Sprays in both nostrils once daily. 16 g 11/30/19 25 025 Discontin ued(*Sarah ent states no longer taking) Active Problems Problem Noted Date Diagnosed Date Rectal bleeding 08/08/2024 Rectal ulcer 08/08/2024 Hidradenitis suppurativa 12/14/2023 H/o H. 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 Pap smear for cervical cancer screening 11/02/19 Overview (12/23/2021): 11/09/2021 NIL/HPV negative Plan: Pap/HPV due 11/2026 Resolved Problems Problem Noted Date Diagnosed Date Resolved Date Nexplanon in place 08/24/2022 4 Overview (08/24/2022): placed 08/24/22 5 year removal date Aug 2027 Encounters Date Type Department Care Team Description 04/12/[address] [address] Jeffrey Luna MD Medication Management (rifAMPin 300 mg capsule) 04/12/2025 Nurse Triage [facility] [address] [place] [address] Erika Miller PA Nausea 04/12/[address] [address] Jeffrey Luna MD Error-please disregard 04/05/2025 4:45 PM CDT Ancillary Procedure [address] [phone] 04/05/2025 4:30 PM CDT Orders Only [address] [place] [address] Lab 04/05/2025 3:30 PM CDT Office Visit [facility] [address] [address] Jeffrey Luna MD Consult (TB) 04/05/2025 Travel 04/02/2025 Telephone [facility] [address] [place] [address] Mihaela Ibarra, Results 03/27/2025 3:40 PM CDT Office Visit [facility] [address] [place] [address] Mihaela Ibarra, DO Infectious Disease (Patient would like TB testing for a new job.) 03/27/2025 Travel 02/28/2025 1:00 PM CDT Office Visit [facility] [address] [place] [address] Selena Morse PA Follow Up (02/25/25 urgent care, LT fatty liver ) 02/28/2025 Travel 02/27/2025 Telephone [facility] [id number] [place] [phone] Rehana Augustin NP Results 02/25/2025 6:10 PM CDT Ancillary Procedure [address] [phone] 02/25/2025 6:00 PM CDT Ancillary Procedure [facility] [id number] [place] [phone] 02/25/2025 4:25 PM CDT Office Visit [facility] [id number] [place] [phone] Rehana Augustin NP Lump 02/25/2025 Travel from Last 3 Months Immunizations Immunization Administration Dates Next Due COVID-19 vaccine (Moderna 100mcg/0.5mL) HARSHA COLIN 12/24/2021,11/12/2021 INFLUENZA, IIV3 PF (AGE >= 6 MO) 03/27/2025 Tdap 03/27/2025 Family History Medical History Relation Name Comments Cancer-breast No Family History Cancer-ovarian No Family History Social History Tobacco Use Types Packs/Day Years Used Date Smoking Tobacco: Never Smokeless Tobacco: Never Tobacco Cessation:Counseling Given: Yes Alcohol Use Standard Drinks/Week Comments Never 0 (1 standard drink = 0.6 oz pur e alcohol) PHQ-2 Answer Date Recorded PHQ-2 TOTAL SCORE 2 03/27/2025 Social Connections Answer Date Recorded Do you often feel lonely or isolated from those around you? 0 03/27/2025 Alcohol Use Answer Date Recorded How often do you have a drink containing alcohol ? 0 03/27/2025 How many drinks containing a lcohol do you have on a typical day when you are drinking? 0 03/27/2025 How often do you have five or more drinks on one occasion? 0 03/27/2025 Financial Resource Strain Answer Date R ecorded Difficulty of Paying Living Expenses 3 03/27/2025 Difficulty of Paying Living Expenses Not on file 03/27/2025 Food Insecurity Answer Date Recorded Do you worry your food will run out before you are able to buy more? 1 03/27/2025 Transportation Needs Answer Date Record ed Does lack of transportation keep you from medica l appointments? 1 03/27/2025 Does lack of transportation keep you from work, meetings or getting things that you need? 1 03/27/2025 Housing Stability Answer Date Recorded What is your housing situation today? 1 03/27/2025 Utilities Answer Date Recorded Do you have trouble paying f or utilities (for example, heat, electricity, water, phone)? 1 03/27/2025 Comments No Sex and Gender Information Value Date Recorded Sex Assigned at Not on file Legal Sex Female 11:53 AM [employer]RILL GR[employer] Gender Identity Not on file Sexual Orientation Not on file Obstetrics History Last Filed Vital Signs Vital Sign Reading Time Taken Comments Blood Pressure 138/82 04/05/2025 3:43 PM CDT Pulse 61 04/05/2025 3:43 PM CDT Temperature 36.4 C (97.6 F) 02/25/2025 4:29 PM CDT Respiratory Rate 12 02/25/2025 4:29 PM CDT Oxygen Saturation 97% 04/05/2025 3:43 PM CDT Inhaled Oxygen Concentration - - Weight 65.1 kg (143 lb 9.6 oz) 04/05/2025 3:43 P M CDT Height 170.2 cm (5' 7) 04/05/2025 3:43 PM CDT Body Mass Index 22.49 04/05/2025 3:43 PM CDT Plan of Treatment Health Maintenance Due Date Last Done Comments Hepatitis B series for 19+ (1 of 3 - 19+ 3-dose series) 2000 HPV series for age 9-45 (1 - 3-dose SCDM series) 2008 COVID-19 vaccine series (2024- season) 2025 12/24/2021, 11/12/2021 Depression screening for age 12+ 03/27/2026 03/27/2025, 10/31/2023, 05/07/2022, Additional history exists BMI (ht and wt on same day) for age 18+ 04/05/2026 04/05/2025, 03/27/2025, 02/28/2025, Additional history exists Pap test for age 21-65 11/09/2026 11/09/2021, 2021 Tetanus booster 03/27/2035 03/27/2025 RSV vaccine for adults or (1 - 1-dose 75+ series) 2056 HIV for age 15-65 Completed 10/31/2023 Influenza Vaccine Completed 03/27/2025 Hepatitis C screening for age 18-79 Completed 04/05/2025, 10/31/2023 Pneumococcal series for age 6-49 Aged Out No longer eligible based on patient's age to complete this topic Procedures Procedure Name Priority Date/Time Associated Diagnosis Comments ANTI HCV Routine 04/05/2025 5:38 PM CDT Latent tuberculosis ANTI HBC Routine 04/05/2025 5:38 PM CDT Latent tuberculosis ANTI HBS QUANT AHS Routine 04/05/2025 5: 38 PM CDT Latent tuberculosis HBSAG (HBS) Routine 04/05/2025 5:38 PM CDT Latent tuberculosis HEPATIC FUNCTION PANEL Routine 04/05/2025 5:38 PM CDT Latent tuberculosis XR CHEST 2 VIEWS PA AND LATERAL Routine 04/05/2025 5:09 PM CDT Latent tuberculosis QUANTIFERON -TB GOLD PLUS 1 TUBE ([facility]) Routine 03/27/2025 4:11 PM CDT Screening for tuberculosis ANTINUCLEAR ANTIBODIES TITER AND PATTERN ([facility] REFLEX ONLY) Routine 02/28/2025 1:49 PM CDT Polyarthritis COMP METABOLIC PANEL Routine 02/28/2025 1:49 PM CDT Hepatic steatosis RA QUANTITATIVE Routine 02/28/2025 1:49 PM CDT Polyarthritis C-REACTIVE PROTEIN Routine 02/28/2025 1: 49 PM CDT Polyarthritis CELIAC CASCADE PANEL Routine 02/28/2025 1:49 PM CDT Polyarthritis BEV CASCADE(BEV,IFA W/RFL AND REFL 11 AB CASCADE) ([facility]) Routine 02/28/2025 1:49 PM CDT Polyarthritis HEMOGLOBIN A1C Routine 02/28/2025 1:49 PM CDT Hepatic steatosis LIPID PANEL Routine 02/28/2025 1:49 PM CDT Hepatic steatosis URINE POCT Routine 02/25/2025 7:00 PM CDT Abdominal pain, LUQ (left upper quadrant) URINE CULTURE Routine 02/25/2025 7:00 PM CDT Abdominal pain, LUQ (left upper quadrant) UA W/ SEDIMENT EXAM REFLEXED PER CRITERIA Routine 02/25/2025 7:00 PM CDT Abdominal pain, LUQ (left upper quadrant) MAGNESIUM Add On 02/25/2025 6:16 PM CDT Hypokalemia CBC WITH AUTO DIFFERENTIAL Routine 02/25/2025 6:16 PM CDT Abdominal pain, LUQ (left upper quadrant) HEPATIC FUNCTION PANEL Routine 02/25/2025 6:16 PM CDT Abdominal pain, LUQ (left upper quadrant) LIPASE Routine 02/25/2025 6:16 PM CDT Abdominal pain, LUQ (left upper quadrant) ISTAT CHEM 8 Routine 02/25/2025 6:16 PM CDT Abdominal pain, LUQ (left upper quadrant) CBC WITH AUTO DIFFERENTIAL Routine 02/25/2025 6:16 PM CDT Abdominal pain, LUQ (left upper quadrant) XR SPINE STANDING SCOLIOSIS 1 VIEW STAT 02/25/2025 6:15 PM CDT Abdominal pain, LUQ (left upper quadrant) CT ABDOMEN PELVIS W STAT 02/25/2025 6 :06 PM CDT Abdominal pain, LUQ (left upper quadrant) ANTI HIV 1/2 Routine 10/31/2023 4:56 PM CDT Encounter for screening for HIV [employer] THIN PREP PAP SCREEN IMAGED Routine 11/09/2021 3:40 PM CDT Screening for malignant neoplasm of cervix from Last 3 Months or Most Recently Relevant to Health Maintenance Results * HBSAG (HBS) (04/05/2025 5:38 PM CDT) HEPATITIS B SURFACE ANTIGEN NON-REACT JEFF NON-REACT JEFF 04/08/2025 8:26 AM CDT [facility] Comment: For additional information, please refer to http://education.[employer].S. TrailMaps/faq/TLW002 (This link is being provided for informational/ educational purposes only.) Blood BLOOD SPECIMEN / Unknown [facility] / Unknown 04/05/2025 5:38 PM CDT 04/05/2025 5:38 PM CDT Jeffrey Luna MD SEND OUTS Final Res ult Performing Organization Address [facility] [address]/[facility] de Phone Number [facility] [place] [phone], * ANTI HCV (04/05/2025 5:38 PM CDT) HEPATITIS C ANTIBODY NON-REACT JEFF NON-REACT JEFF 04/08/2025 8:26 AM CDT [facility] Comment: HCV antibody was non-reactive. There is no laboratory evidence of HCV infection. In most cases, no further action is required. However, if recent HCV exposure is suspected, a test for HCV RNA (test code 13729) is suggested. For additional information please refer to http://Mango [employer]SP.EXTRABANCA/faq/EVI44r9 (This link is being provided for informational/ educational purposes only.) Blood BLOOD SPECIMEN / Unknown [facility] / Unknown 04/05/2025 5:38 PM CDT 04/05/2025 5:38 PM CDT Jeffrey Luna MD SEND OUTS Final Res ult Performing Organization Address [facility] [address]/[facility] de Phone Number [facility] [address] [address], * ANTI HBS QUANT AHS (04/05/2025 5:38 PM CDT) HEPATITIS B SURFACE AB IMMUNITY, QN >1000 > OR = 10 mIU/mL 04/08/2025 8:26 AM CDT [facility] Comment: Patient has immunity to hepatitis B virus. For additional information, please refer to http://[employer]/faq/AUX628 (This link is being provided for informational/ educational purposes only). Blood BLOOD SPECIMEN / Unknown [facility] / Unknown 04/05/2025 5:38 PM CDT 04/05/2025 5:38 PM CDT Jeffrey Luna MD SEND OUTS Final Res ult Performing Organization Address [facility] [address]/[facility] de Phone Number [facility] [address] [address], * (ABNORMAL) ANTI HBC (04/05/2025 5:38 PM CDT) Pathologist [facility] HEPATITIS B CORE AB TOTAL REACTIVE( A) NON-REACT JEFF 04/08/2025 8:26 AM CDT [facility] Comment: For additional information, please refer to http://education.EXTRABANCA/faq/SWX192 (This link is being provided for informational/ educational purposes only.) Blood BLOOD SPECIMEN / Unknown [facility] / Unknown 04/05/2025 5:38 PM CDT 04/05/2025 5:38 PM CDT Jeffrey Luna MD SEND OUTS Final Res ult Performing Organization Address [facility] de Phone Number [facility] [address] [address], * HEPATIC FUNCTION PANEL (04/05/2025 5:38 PM CDT) Only the most recent of2 resultswithin the time period is included. Pathologist [facility] ALBUMIN 4.4 3.6 - 5.1 g/dL 04/06/2025 5:39 AM CDT [facility] PROTEIN, TOTAL 7.3 6.1 - 8.1 g/dL 04/06/2025 5:39 AM CDT [facility] BILIRUBIN, TOTAL 0.3 0.2 - 1.2 mg/dL 04/06/2025 5:39 AM CDT [facility] BILIRUBIN, DIRECT 0.1 < OR = 0.2 mg/dL 04/06/2025 5:39 AM CDT [facility] BILIRUBIN, INDIRECT 0.2 0.2 - 1.2 mg/dL (calc) 04/06/2025 5:39 AM CDT [facility] ALKALINE PHOSPHATASE 46 31 - 125 U/L 04/06/2025 5:39 AM CDT [facility] ALT 15 6 - 29 U/L 04/06/2025 5:39 AM CDT [facility] AST 19 10 - 30 U/L 04/06/2025 5:39 AM CDT [facility] GLOBULIN 2.9 1.9 - 3.7 g/dL (calc) 04/06/2025 5:39 AM CDT [facility] ALBUMIN/GLOBULIN RATIO 1.5 1.0 - 2.5 (calc) 04/06/2025 5:39 AM CDT [facility] Blood BLOOD SPECIMEN / Unknown [facility] / Unknown 04/05/2025 5:38 PM CDT 04/05/2025 5:38 PM CDT Jeffrey Luna MD CHEMISTRY Final Res ult [facility] [address] [place] [address], * XR CHEST 2 VIEWS PA AND LATERAL (04/05/2025 5:09 PM CDT) Anatomical Region Laterality Modality CHEST, THORAX, Lung, HEART Compu jonh Radiography 04/06/2025 10:2 5 AM CDT Addenda Addendum by Alhaji Saab MD on 04/07/2025 9:36 PM CDT For Patients: As a result of the Century Cures Act, medical imaging exams and procedure reports are released immediately into your electronic medical record. You may view this report before your referring provider. If you have questions, please contact your health care provider. INDICATION: Latent tuberculosis COMPARISON: none TECHNIQUE: Two views of the chest were obtained. FINDINGS: The lungs are clear. There is no evidence of a suspicious infiltrate, cavitary lesion or focal pleural abnormality. Pulmonary sarai are of normal size and density. Heart and blood vessels appear normal and there is no evidence of pleural fluid. IMPRESSION: No active pulmonary process identified. Dictated by Alhaji Saab MD @ 04/07/2025 9:36:09 PM (Electronically Signed) Impressions 04/06/2025 10:25 AM CDT Negative chest. No sign of active disease. Dictated by Juan Stahl MD @ Apr 06 2025 10:25AM (Electronically Signed) [email or web address] Narrative 04/06/2025 10:25 AM CDT For Patients: As a result of the Cures Act, medical imaging exams and procedure reports are released immediately into your electronic medical record. You may view this report before your referring provider. If you have questions, please contact your health care provider. INDICATION: Latent tuberculosis. TECHNIQUE: Chest 2 views. COMPARISON: None. FINDINGS: Cardiovascular and mediastinum: Heart size is normal. Unremarkable mediastinum. Lungs and pleural spaces: Lungs are clear. No sign of infiltrate or mass. No sign of pleural effusion. No pneumothorax. Bones and soft tissues: No significant findings. Procedure Note Juan Stahl MD / Alhaji Saab MD - 04/06/2025 For Patients: As a result of the Cures Act, medical imagingexams and procedure reports are released immediately into your electronicmedical record. You may view this report before your referring provider.If you have questions, please contact your health care provider. INDICATION: Latent tuberculosis. TECHNIQUE: Chest 2 views. COMPARISON: None. FINDINGS: Cardiovascular and mediastinum: Heart size is normal. Unremarkablemediastinum. Lungs and pleural spaces: Lungs are clear. No sign of infiltrate ormass. No sign of pleural effusion. No pneumothorax. Bones and soft tissues: No significant findings. IMPRESSION: Negative chest. No sign of active disease. Dictated by Juan Stahl MD @ Apr 06 2025 10:25AM (Electronically Signed) [email or web address] Jeffrey Luna MD GENERAL IMAGING Edited Re sult - Final * (ABNORMAL) QUANTIFERON??-TB GOLD PLUS 1 TUBE ([facility]) (03/27/2025 4:11 PM CDT) NIL 0.06 IU/mL 03/29/2025 5:27 PM CDT [facility] TB1-NIL 0.41 IU/mL 03/29/2025 5:27 PM CDT [facility] TB2-NIL 0.89 IU/mL 03/29/2025 5:27 PM CDT [facility] Comment: The Nil tube value reflects the background interferon gamma immune response of the patient's blood sample. This value has been subtracted from the patient's displayed TB and Mitogen results. Lower than expected results with the Mitogen tube prevent false-negative Quantiferon readings by detecting a patient with a potential immune suppressive condition and/or suboptimal pre-analytical specimen handling. The TB1 Antigen tube is coated with the M. tuberculosis-specific antigens designed to elicit responses from TB antigen primed CD4+ helper T-lymphocytes. The TB2 Antigen tube is coated with the M. tuberculosis-specific antigens designed to elicit responses from TB antigen primed CD4+ helper and CD8+ cytotoxic T-lymphocytes. For additional information, please refer to https://education.EXTRABANCA/faq/EWM429 (This link is being provided for informational/ educational purposes only.) MITOGEN-NIL 8.78 IU/mL 03/29/2025 5:27 PM CDT [facility] QUANTIFERON(R)-T B GOLD PLUS, 1 TUBE POSITIVE( A) NEGATIVE 03/29/2025 5:27 PM CDT [facility] Comment: In healthy persons who have a low likelihood of M. tuberculosis infection, a single positive QFT result should not be taken as reliable evidence of M. tuberculosis infection. Repeat testing, with either the initial test or a different test, may be considered on a [id number] basis. Blood BLOOD SPECIMEN / Unknown [facility] / Unknown 03/27/2025 4:11 PM CDT 03/27/2025 4:11 PM CDT us Mihaela Ibarra DO SEND OUTS Final Resu lt [facility] [address] [place] [address], [place] [phone] * (ABNORMAL) ANTINUCLEAR ANTIBODIES TITER AND PATTERN ([facility] REFLEX ONLY) (02/28/2025 1:49 PM CDT) BEV PATTERN Nuclear, Speckled( A) 03/02/2025 9:45 AM CDT [facility] Comment: Speckled pattern is associated with mixed connective tissue disease (MCTD), systemic lupus erythematosus (SLE), Sjogren's syndrome, dermatomyositis, and systemic sclerosis/polymyositis overlap. AC-2,4,5,29: Speckled International Consensus on BEV Patterns (https://doi.org/10.1515/xujt-0339-3918) BEV TITER 1:80(H) titer 03/02/2025 9:45 AM CDT [facility] Comment: A low level BEV titer may be present in pre-clinical autoimmune diseases and normal individuals. Reference Range <1:40 Negative 1:40-1:80 Low Antibody Level >1:80 Elevated Antibody Level Blood BLOOD SPECIMEN / Unknown Non-Lab Venipuncture / Unknown 02/28/2025 1:49 PM CDT 02/28/2025 1:49 PM CDT [facility] Final R esult [facility] [address] [address], * (ABNORMAL) BEV CASCADE(BEV,IFA W/RFL AND REFL 11 AB CASCADE) ([facility]) (02/28/2025 1:49 PM CDT) BEV SCREEN, IFA POSITIVE (A) NEGATIVE 03/02/2025 12:47 PM CDT [facility] Comment: BEV IFA is a first line screen for detecting the presence of up to approximately 150 autoantibodies in various autoimmune diseases. A positive BEV IFA result is suggestive of autoimmune disease and reflexes to titer, pattern and the 3 tiered Multiplex 11 Antibody [place]. Testing in the [place] stops at the first positive result, and does not preclude additional positive results. Further laboratory testing may be considered if clinically indicated. For additional information, please refer to http://education.Driverdo/faq/GCT395 (This link is being provided for informational/ educational purposes only.) DNA (DS) ANTIBODY <1 IU/mL 025 12:47 PM CDT [facility] Comment: IU/mL Interpretation < or = 4 Negative 5-9 Indeterminate > or = 10 Positive SM ANTIBODY <1.0 NEG <1.0 NEG 03/02/2025 12:47 PM CDT [facility] SM/EARTH SCIENCE FACULTY MEMBER ANTIBODY <1.0 NEG <1.0 NEG 03/02/20 12:47 PM CDT [facility] EARTH SCIENCE FACULTY MEMBER ANTIBODY <1.0 NEG <1.0 NEG 03/02/2025 12:47 PM CDT [facility] CHROMATIN (NUCLEOSOMAL) ANTIBODY <1.0 NEG <1.0 NEG 03/02/2025 12:47 PM CDT [facility] SJOGREN'S ANTIBODY (SS-A) <1.0 NEG <1.0 NEG 03/02/2025 12:47 PM CDT [facility] SJOGREN'S ANTIBODY (SS-B) <1.0 NEG <1.0 NEG 03/02/2025 12:47 PM CDT [facility] SCL-70 ANTIBODY <1.0 NEG <1.0 NEG 03/02/20 12:47 PM CDT [facility] NATIVIDAD-1 ANTIBODY <1.0 NEG <1.0 NEG 03/02/2025 12:47 PM CDT [facility] CENTROMERE B ANTIBODY <1.0 NEG <1.0 NEG 03/02/2025 12:47 PM CDT [facility] RIBOSOMAL P ANTIBODY <1.0 NEG <1.0 NEG 03/02/2025 12:47 PM CDT [facility] Comment: The [place] does not rule out autoimmune disease characterized by other autoantibody specificities such as rheumatoid arthritis, autoimmune hepatitis, primary biliary cirrhosis, autoimmune thyroiditis, Paul's disease, pernicious anemia, autoimmune neuropathies, vasculitis, celiac disease and bullous disease. Please contact your local [facility] laboratory if you are interested in additional testing. BEV CASCADE INTERPRETATION SEE NOTE 03/02/2025 12:47 PM CDT [facility] Comment: All three negative tiers indicate the absence of detectable antibodies to component analytes consisting of double stranded DNA (dsDNA), chromatin, ribonucleoprotein (EARTH SCIENCE FACULTY MEMBER), Norman/EARTH SCIENCE FACULTY MEMBER (Sm/EARTH SCIENCE FACULTY MEMBER), Norman (Sm), SS-A, SS-B, Natividad-1, Scl-70, centromere B and ribosomal P. A negative result should be interpreted in the context of the clinical and laboratory findings. Blood BLOOD SPECIMEN / Unknown Non-Lab Venipuncture / Unknown 02/28/2025 1:49 PM CDT 02/28/2025 1:49 PM CDT Selena STAFFORD SEND OUTS Final R esult Performing Organization Address [facility] [address]/ZIP Co de Phone Number [facility] [address] [address], * CELIAC CASCADE PANEL (02/28/2025 1:49 PM CDT) IMMUNOGLOBULIN A 154 47 - 310 mg/dL 03/02/2025 6:23 AM CDT [facility] CELIAC DISEASE COMPREHENSIVE PANEL INTERPRETATION SEE NOTE 03/02/2025 6:23 AM CDT [facility] Comment: No serological evidence of celiac disease. tTG IgA may normalize in individuals with celiac disease who maintain a gluten-free diet. Consider HLA DQ2 and DQ8 testing to rule out celiac disease. Celiac disease is extremely rare in the absence of DQ2 or DQ8. TISSUE TRANSGLUTAMINASE AB, IGA <1.0 U/mL 03/02/2025 6:23 AM CDT [facility] Comment: Value Interpretation ----- <15.0 Antibody not detected > or = 15.0 Antibody detected Blood BLOOD SPECIMEN / Unknown Non-Lab Venipuncture / Unknown 02/28/2025 1:49 PM CDT 02/28/2025 1:49 PM CDT Selena STAFFORD SEND OUTS Final R esult [facility] [address] [address], * HEMOGLOBIN A1C (02/28/2025 1:49 PM CDT) HEMOGLOBIN A1C 5.3 <5.7 % 03/01/2025 6:03 AM CDT [facility] Comment: For the purpose of screening for the presence of diabetes: <5.7% Consistent with the absence of diabetes 5.7-6.4% Consistent with increased risk for diabetes (prediabetes) > or =6.5% Consistent with diabetes This assay result is consistent with a decreased risk of diabetes. Currently, no consensus exists regarding use of hemoglobin A1c for diagnosis of diabetes in children. According to [place] Diabetes Association (ADA) guidelines, hemoglobin A1c <7.0% represents optimal control in non- diabetic patients. Different metrics may apply to specific patient populations. Standards of Medical Care in Diabetes(ADA). Blood BLOOD SPECIMEN / Unknown Non-Lab Venipuncture / Unknown 02/28/2025 1:49 PM CDT 02/28/2025 1:49 PM CDT us Selena STAFFORD CHEMISTRY Final R esult Performing Organization Address City/[facility] [address]/ZIP Co de Phone Number [facility] [address] [address], * RA QUANTITATIVE (02/28/2025 1:49 PM CDT) RHEUMATOID FACTOR <10 <14 IU/mL 03/01/2025 10:57 AM CDT [facility] Blood BLOOD SPECIMEN / Unknown Non-Lab Venipuncture / Unknown 02/28/2025 1:49 PM CDT 02/28/2025 1:49 PM CDT us Selena STAFFORD SEND OUTS Final R esult [facility] [address] [address], * C-REACTIVE PROTEIN (02/28/2025 1:49 PM CDT) C-REACTIVE PROTEIN (MG/L) <3.0 <8.0 mg/L 03/01/2025 10:57 AM CDT [facility] Blood BLOOD SPECIMEN / Unknown Non-Lab Venipuncture / Unknown 02/28/2025 1:49 PM CDT 02/28/2025 1:49 PM CDT Selena STAFFORD CHEMISTRY Final R esult [facility] [address] [place] [address], * LIPID PANEL (02/28/2025 1:49 PM CDT) [facility] CHOLESTEROL, TOTAL 148 <200 mg/dL 03/01/2025 8:58 AM CDT [facility] TRIGLYCERIDES 45 <150 mg/dL 03/01/2025 8:58 AM CDT [facility] HDL CHOLESTEROL 62 > OR = 50 mg/dL 03/01/2025 8:58 AM CDT [facility] NON HDL CHOLESTEROL 86 <130 mg/dL (calc) 03/01/2025 8:58 AM CDT [facility] Comment: For patients with diabetes plus 1 major ASCVD risk factor, treating to a non-HDL-C goal of <100 mg/dL (LDL-C of <70 mg/dL) is considered a therapeutic option. CHOL/HDLC RATIO 2.4 <5.0 (calc) 03/01/2025 8:58 AM CDT [facility] LDL-CHOLESTEROL 73 mg/dL (calc) 03/01/2025 8:58 AM CDT [facility] Comment: Reference range: <100 Desirable range <100 mg/dL for primary prevention; <70 mg/dL for patients with CHD or diabetic patients with > or = 2 CHD risk factors. LDL-C is now calculated using the Devendra-Donna calculation, which is a validated novel method providing better accuracy than the Friedewald equation in the estimation of LDL-C. Devendra SS et al. DAVID. 2013;310(19): 2954-5198 (http://education.Driverdo/faq/CQD138) Blood BLOOD SPECIMEN / Unknown Non-Lab Venipuncture / Unknown 02/28/2025 1:49 PM CDT 02/28/2025 1:49 PM CDT us Selena STAFFORD CHEMISTRY Final R esult [facility] [place] [address] [place] [address], * COMP METABOLIC PANEL (02/28/2025 1:49 PM CDT) SODIUM 140 135 - 146 mmol/L 03/01/2025 8:58 AM CDT [facility] POTASSIUM 3.5 3.5 - 5.3 mmol/L 03/01/2025 8:58 AM CDT [facility] CHLORIDE 104 98 - 110 mmol/L 03/01/2025 8:58 AM CDT [facility] CARBON DIOXIDE 26 20 - 32 mmol/L 03/01/2025 8:58 AM CDT [facility] GLUCOSE 72 65 - 99 mg/dL 03/01/2025 8:58 AM CDT [facility] Comment: Fasting reference interval CALCIUM 9.1 8.6 - 10.2 mg/dL 03/01/2025 8:58 AM CDT [facility] CREATININE 0.71 0.50 - 0.99 mg/dL 03/01/2025 8:58 AM CDT [facility] BUN/CREATININE RATIO SEE NOTE: 6 (calc) 03/01/2025 8:58 AM CDT [facility] Comment: Not Reported: BUN and Creatinine are within reference range. EGFR 108 > OR = 60 mL/min/1. 73m2 03/01/2025 8:58 AM CDT [facility] ALBUMIN 4.5 3.6 - 5.1 g/dL 03/01/2025 8:58 AM CDT [facility] PROTEIN, TOTAL 7.4 6.1 - 8.1 g/dL 03/01/2025 8:58 AM CDT [facility] BILIRUBIN, TOTAL 0.4 0.2 - 1.2 mg/dL 03/01/2025 8:58 AM CDT [facility] ALKALINE PHOSPHATASE 42 31 - 125 U/L 03/01/2025 8:58 AM CDT [facility] ALT 12 6 - 29 U/L 03/01/2025 8:58 AM CDT [facility] AST 18 10 - 30 U/L 03/01/2025 8:58 AM CDT [facility] UREA NITROGEN (BUN) 11 7 - 25 mg/dL 03/01/2025 8:58 AM CDT [facility] GLOBULIN 2.9 1.9 - 3.7 g/dL (calc) 03/01/2025 8:58 AM CDT [facility] ALBUMIN/GLOBULI N RATIO 1.6 1.0 - 2.5 (calc) 03/01/2025 8:58 AM CDT [facility] Blood BLOOD SPECIMEN / Unknown Non-Lab Venipuncture / Unknown 02/28/2025 1:49 PM CDT 02/28/2025 1:49 PM CDT us Selena STAFFORD CHEMISTRY Final R esult [facility] [address] [address], [place] [phone] * URINE TEST (UPT) [21023.2] (02/25/2025 7:00 PM CDT) POC HCG URINE NEGATIVE NEGATIVE 02/25/2025 7:19 PM CDT [facility] Urine URINE SPECIMEN / Unknown Non-Blood / Unknown 02/25/2025 7:00 PM CDT 02/25/2025 7:11 PM CDT us Rehana Augustin DIRECTOR EMERGENCY DEPARTMENT URINE Final Result Performing Organization Address [facility] [address]/ZIP Co de Phone Number [facility] [address] [address], [place] [phone] [facility] [id number] [place] [address], [place] * URINE CULTURE [28602.2] - routine (02/25/2025 7:00 PM CDT) CULTURE <10,000 CFU/mL multiple organisms 02/27/2025 9:17 AM CDT [facility] Urine URINE SPECIMEN / Unknown Non-Blood / Unknown 02/25/2025 7:00 PM CDT 02/25/2025 7:11 PM CDT us Rehana Augustin DIRECTOR EMERGENCY DEPARTMENT MICROBIOLOGY Final Result [facility] [address] [place] [address], [place] * UA W/ SEDIMENT EXAM REFLEXED PER CRITERIA [39747.2] (02/25/2025 7:00 PM CDT) COLOR YELLOW YELLOW 02/25/2025 7:18 PM CDT [facility] SPECIFIC GRAVITY 1.010 1.001 - 1.035 02/25/2025 7:18 PM CDT [facility] PH 7.5 5.0 - 8.0 02/25/2025 7:18 PM CDT [facility] PROTEIN NEGATIVE NEGATIVE 02/25/2025 7:18 PM CDT [facility] GLUCOSE NEGATIVE NEGATIVE 02/25/2025 7:18 PM CDT [facility] KETONES NEGATIVE NEGATIVE 02/25/2025 7:18 PM CDT [facility] BILIRUBIN NEGATIVE NEGATIVE 02/25/2025 7:18 PM CDT [facility] OCCULT BLOOD NEGATIVE NEGATIVE 02/25/2025 7:18 PM CDT [facility] NITRITE NEGATIVE NEGATIVE 02/25/2025 7:18 PM CDT [facility] LEUKOCYTE ESTERASE NEGATIVE NEGATIVE 02/25/2025 7:18 PM CDT [facility] APPEARANCE CLEAR CLEAR 02/25/2025 7:18 PM CDT [facility] Urine URINE SPECIMEN / Unknown Non-Blood / Unknown 02/25/2025 7:00 PM CDT 02/25/2025 7:11 PM CDT us Rehana Augustin DIRECTOR EMERGENCY DEPARTMENT URINE Final Result [facility] [place] [address] [address], [place] [phone] [facility] [address] [place] [address], [place] * CBC WITH AUTO DIFFERENTIAL (02/25/2025 6:16 PM CDT) WHITE BLOOD CELL COUNT 4.2 3.8 - 10.8 Thousand/u L 02/25/2025 6:39 PM CDT [facility] RED BLOOD CELL COUNT 4.44 3.80 - 5.10 Million/uL 02/25/2025 6:39 PM CDT [facility] HEMOGLOBIN 13.4 11.7 - 15.5 g/dL 02/25/2025 6:39 PM CDT [facility] HEMATOCRIT 40.0 35.0 - 45.0 % 02/25/2025 6:39 PM CDT [facility] MCV 90.1 80.0 - 100.0 fL 02/25/2025 6:39 PM CDT [facility] MCH 30.2 27.0 - 33.0 pg 02/25/2025 6:39 PM CDT [facility] MCHC 33.5 32.0 - 36.0 g/dL 02/25/2025 6:39 PM CDT [facility] Comment: For adults, a slight decrease in the calculated MCHC value (in the range of 30 to 32 g/dL) is most likely not clinically significant; however, it should be interpreted with caution in correlation with other red cell parameters and the patient's clinical condition. RDW 12.6 11.0 - 15.0 % 02/25/2025 6:39 PM CDT [facility] PLATELET COUNT 255 140 - 400 Thousand/u L 02/25/2025 6:39 PM CDT [facility] MPV 10.9 7.5 - 12.5 fL 02/25/2025 6:39 PM CDT [facility] NEUTROPHILS 42.6 % 02/25/2025 6:39 PM CDT [facility] LYMPHOCYTES 46.2 % 02/25/2025 6:39 PM CDT [facility] MONOCYTES 8.6 % 02/25/2025 6:39 PM CDT [facility] EOSINOPHILS 1.9 % 02/25/2025 6:39 PM CDT [facility] BASOPHILS 0.7 % 02/25/2025 6:39 PM CDT [facility] ABSOLUTE NEUTROPHILS 1789 1500 - 7800 cells/uL 02/25/2025 6:39 PM CDT [facility] ABSOLUTE LYMPHOCYTES 1940 850 - 3900 cells/uL 02/25/2025 6:39 PM CDT [facility] ABSOLUTE MONOCYTES 361 200 - 950 cells/uL 02/25/2025 6:39 PM CDT [facility] ABSOLUTE EOSINOPHILS 80 15 - 500 cells/uL 02/25/2025 6:39 PM CDT [facility] ABSOLUTE BASOPHILS 29 0 - 200 cells/uL 02/25/2025 6:39 PM CDT [facility] Blood BLOOD SPECIMEN / Unknown [facility] / Unknown 02/25/2025 6:16 PM CDT 02/25/2025 6:16 PM CDT us Rehana Augustin NP HEMATOLOGY Final Result Performing Organization Address City/State/[facility] Co de Phone Number [facility] [address] [address], [place] [phone] [place] [address], [place] * (ABNORMAL) CHEM8 BMP ISTAT [[id number]] (02/25/2025 6:16 PM CDT) [facility] POCT, SODIUM, ISTAT 138 138 - 146 mmol/L 02/25/2025 6:40 PM CDT [facility] POCT, POTASSIUM, ISTAT 3.3(L) 3.5 - 4.9 mmol/L 02/25/2025 6:40 PM CDT [facility] POCT, CHLORIDE, ISTAT 99 98 - 109 mmol/L 02/25/2025 6:40 PM CDT [facility] POCT, CARBON DIOXIDE, ISTAT 27 24 - 29 mmol/L 02/25/2025 6:40 PM CDT [facility] POCT, GLUCOSE ISTAT 97 70 - 105 mg/dL 02/25/2025 6:40 PM CDT [facility] POCT, CALCIUM, IONIZED, ISTAT 4.9 4.5 - 5.3 mg/dL 02/25/2025 6:40 PM CDT [facility] POCT, UREA NITROGEN (BUN) ISTAT 5(L) 8 - 26 mg/dL 02/25/2025 6:40 PM CDT [facility] POCT,CREATININ E, ISTAT 0.7 0.6 - 1.3 mg/dL 02/25/2025 6:40 PM CDT [facility] Blood BLOOD SPECIMEN / Unknown [facility] / Unknown 02/25/2025 6:16 PM CDT 02/25/2025 6:16 PM CDT Rehana Augustin DIRECTOR EMERGENCY DEPARTMENT CHEMISTRY Final Result Performing Organization Address City/[facility] [address]/ZIP Co de Phone Number [facility] [address] [address], [place] [phone] [facility] [address] [place] [address], [place] * MAGNESIUM (02/25/2025 6:16 PM CDT) MAGNESIUM 2.2 1.5 - 2.5 mg/dL 02/27/2025 12:34 AM CDT [facility] Blood BLOOD SPECIMEN / Unknown [facility] / Unknown 02/25/2025 6:16 PM CDT 02/25/2025 6:16 PM CDT Rehana Augustin DIRECTOR EMERGENCY DEPARTMENT CHEMISTRY Final Result Performing Organization Address City/[facility] [address]/ZIP Co de Phone Number [facility] [address] [address], [place] [phone] * LIPASE (02/25/2025 6:16 PM CDT) LIPASE 18 7 - 60 U/L 02/26/2025 4:52 AM CDT [facility] Blood BLOOD SPECIMEN / Unknown [facility] / Unknown 02/25/2025 6:16 PM CDT 02/25/2025 6:16 PM CDT us Rehana Augustin DIRECTOR EMERGENCY DEPARTMENT CHEMISTRY Final Result [facility] [address] [place] [address], * XR SPINE STANDING SCOLIOSIS 1 VIEW (02/25/2025 6:15 PM CDT) Anatomical Region Laterality Modality CERVICAL SPINE, THORACIC SPINE, LUMBAR SPINE, Sp ine Computed Radiography 02/25/2025 6:15 PM CDT Impressions 02/25/2025 7:21 PM CDT 12 thoracic rib-bearing and 5 lumbar type vertebrae. Measurements: Major Curve: Minimal rightward thoracolumbar curvature. Rodriguez Angle is measured as 5 degree between T6 superior endplate and L4 superior endplate, doubtful clinical significance. Partially visualized lungs are clear. Narrative 02/25/2025 7:21 PM CDT For Patients: As a result of the Cures Act, medical imaging exams and procedure reports are released immediately into your electronic medical record. You may view this report before your referring provider. If you have questions, please contact your health care provider. EXAM: XR SPINE STANDING SCOLIOSIS 1 VIEW LOCATION: [facility] DATE: 02/25/2025 INDICATION: Abdominal Pain, Luq (left Upper Quadrant) COMPARISON: Thoracic CT from 01/29/2025. TECHNIQUE: CR Entire Spine. Procedure Note Linda Higgins MD - 02/25/2025 For Patients: As a result of the Cures Act, medical imagingexams and procedure reports are released immediately into your electronicmedical record. You may view this report before your referring provider.If you have questions, please contact your health care provider. EXAM: XR SPINE STANDING SCOLIOSIS 1 VIEW LOCATION: [facility] DATE: 02/25/2025 INDICATION: Abdominal Pain, Luq (left Upper Quadrant) COMPARISON: Thoracic CT from 01/29/2025. TECHNIQUE: CR Entire Spine. IMPRESSION: 12 thoracic rib-bearing and 5 lumbar type vertebrae. Measurements: Major Curve: Minimal rightward thoracolumbar curvature. Rodriguez Angle ismeasured as 5 degree between T6 superior endplate and L4 superiorendplate, doubtful clinical significance. Partially visualized lungs are clear. Rehana Augustin NP GENERAL IMAGING Final Result * CT ABDOMEN PELVIS W (02/25/2025 6:06 PM CDT) Anatomical Region Laterality Modality Abdomen, Pelvis, AORTA, LIVER, SPLEEN Computed Tomography 02/25/2025 6:06 PM CDT Impressions 02/25/2025 6:23 PM CDT 1. No acute findings in the abdomen and pelvis. 2. Hepatic steatosis. Narrative 02/25/2025 6:23 PM CDT For Patients: As a result of the Cures Act, medical imaging exams and procedure reports are released immediately into your electronic medical record. You may view this report before your referring provider. If you have questions, please contact your health care provider. EXAM: CT ABDOMEN PELVIS W LOCATION: [facility] DATE: 02/25/2025 INDICATION: Abdominal Pain, Luq (left Upper Quadrant) COMPARISON: None. TECHNIQUE: CT scan of the abdomen and pelvis was performed following injection of IV contrast. Multiplanar reformats were obtained. Dose reduction techniques were used. CONTRAST: Omnipaque 350 100 FINDINGS: LOWER CHEST: Normal. HEPATOBILIARY: Hepatic steatosis. Gallbladder within normal limits. PANCREAS: Normal. SPLEEN: Normal. ADRENAL GLANDS: Normal. KIDNEYS/BLADDER: No significant mass, stone, or hydronephrosis. BOWEL: No obstruction or inflammatory change. LYMPH NODES: Normal. VASCULATURE: Normal. PELVIC ORGANS: Bladder and uterus within normal limits. MUSCULOSKELETAL: Normal. Procedure Note aJvier Frias MD - 02/25/2025 For Patients: As a result of the Cures Act, medical imagingexams and procedure reports are released immediately into your electronicmedical record. You may view this report before your referring provider.If you have questions, please contact your health care provider. EXAM: CT ABDOMEN PELVIS W LOCATION: [facility] DATE: 02/25/2025 INDICATION: Abdominal Pain, Luq (left Upper Quadrant) COMPARISON: None. TECHNIQUE: CT scan of the abdomen and pelvis was performed followinginjection of IV contrast. Multiplanar reformats were obtained. Dosereduction techniques were used. CONTRAST: Omnipaque 350 100 FINDINGS: LOWER CHEST: Normal. HEPATOBILIARY: Hepatic steatosis. Gallbladder within normal limits. PANCREAS: Normal. SPLEEN: Normal. ADRENAL GLANDS: Normal. KIDNEYS/BLADDER: No significant mass, stone, or hydronephrosis. BOWEL: No obstruction or inflammatory change. LYMPH NODES: Normal. VASCULATURE: Normal. PELVIC ORGANS: Bladder and uterus within normal limits. MUSCULOSKELETAL: Normal. IMPRESSION: 1. No acute findings in the abdomen and pelvis. 2. Hepatic steatosis. Rehana Augustin NP CT Final Result * ANTI HIV 1/2 (10/31/2023 4:56 PM CDT) Pathologist [facility] HIV-1/HIV-2 SCREEN Non-Reacti ve Non-Reacti ve 11/01/2023 3:00 PM CDT [facility] Comment:HIV-1 p24 and HIV-1/ HIV-2 Ab Not Detected. Blood BLOOD SPECIMEN / Unknown Venipuncture / Unknown 10/31/2023 4:56 PM CDT 10/31/2023 4:57 PM CDT Bernadette Bethea MD SEND OUTS Fi nal Result [facility] [address] [place] [address], * [employer]ELD [employer] TRAINER THIN PREP PAP SCREEN IMAGED [[id number]] (11/09/2021 3:40 PM CDT) Pathologist [facility] Case Report Gynecologic Cytology Report Case: [id number] Authorizing Provider: Alysha Farmer NP Collected: 11/09/2021 1540 Ordering Location: [facility] Received: 11/09/2021 1540 Clinic First Screen: Trevor Yang Specimen: FI[employer] SAL[employer] TRAINER ThinPrep Vial Screening, Cervical 11/24/2021 12:27 PM CDT [facility] INTERPRETATION/ RESULT NEGATIVE FOR INTRAEPITHELIAL LESION OR MALIGNANCY (NIL) (none) 11/24/2021 12:27 PM CDT [facility] at 1227 CDT SPECIMEN ADEQUACY Satisfactory for evaluation No endocervical component seen 11/24/2021 12:27 PM CDT [facility] HPV REQUEST HPV if ASCUS 11/24/2021 12:27 PM CDT [facility] Date of LMP 10/26/2021 11/24/2021 12:27 PM CDT [facility] Last Pap Date uncertain 11/24/2021 12:27 PM CDT [facility] Last Pap Result NIL 12:27 PM CDT [facility] Abnormal Pap or Sparks Bx in last 5 years No 11/24/2021 12:27 PM CDT [facility] Menstrual Status Regular Periods 11/24/2021 12:27 PM CDT [facility] Sparks Bx Done Today No 11/24/2021 12:27 PM CDT [facility] Additional Information None given 11/24/2021 12:27 PM CDT [facility] Comment: Cytology is screened at [facility], [facility] Laboratory - [address], [place] [address] [address] [facility] - [address] [place] [address] and [facility] - [address] [place] [address] [facility] - [address], [place] [address] Automated Review Successful 11/24/2021 12:27 PM CDT [facility] Comment:Specimen processed s uccessfully by automated pathology tech device, ThinPrep Imaging System, [employer] Note The pap test is a [...] and malignant lesions. 11/24/2021 12:27 PM CDT [facility] Other (Cervical) Non-Blood / Unknown 11/09/2021 3:40 PM CDT 11/09/2021 3:40 PM CDT us Alysha Farmer NP PATHOLOGY/CYTOLOGY Final Res ult [facility] [address] [place] [address], from Last 3 Months or Most Recently Relevant to Health Maintenance Additional Health Concerns Infection Onset Date Last Indicated MRSA 02/07/2022 03/30/2022 Insurance [employer] Advance Directives * Full Code (Latest Code Status on File) Date Activated Date Inactivated Comments 08/08/2024 7:38 AM 08/08/2024 3:22 PM Question Answer Comments Code Status Discussion: Reviewed Preferences * Full Code Date Activated Date Inactivated Comments 05/12/2022 9:20 AM 05/12/2022 2:30 PM Question Answer Comments Code Status Discussion: Reviewed Preferences Care Teams Home Attendant Relationship Specialty Start Date End Date Erika Miller PA [address] [place] [address] PCP - General Physician Twist Maker 11/23/24
[2025-04-15 13:02] VITALS: BP 138/80; PULSE 65; RESP 16; TEMP 37.1; O2SAT 100; BMI 22.2
--- OUTSIDE RECORDS SUMMARY | 2025-04-15 13:43 | XMS_ITS | CCD ---
Author Name Interface, [id number] lity Address [address] [place] [address] Oncology Address [address] [place] [address] Reason for Visit Social History Date Name Value 03/02/2025 Sex Unknown
--- OUTSIDE RECORDS SUMMARY | 2025-04-15 13:43 | XMS_ITS | CCD ---
Author Name Interface, [id number] lity Address [address] [place] [address] Oncology Address [address] [place] [address] Reason for Visit Social History Date Name Value 03/02/2025 Sex Unknown
[2025-04-15 13:54] LABS: Lactate* 0.7 mmol/L (0.5-1.9)
[2025-04-15 13:58] LABS: Appearance Urine Clear (Clear)
[2025-04-15 14:01] LABS: Hematocrit* 40.3 % (33.0-51.0); Hemoglobin* 13.7 gm/dL (12.0-16.0); Immature Granulocytes Abs Auto 0.00 K/uL (0.00-0.30); Immature Granulocytes Pct Auto 0.0 %; Mean Corpuscular HGB Conc 34 gm/dL (32-36); Mean Corpuscular Hemoglobin 30 pg (26-34); Mean Corpuscular Volume 89 fL (80-100); RDW Coefficient of Variation % 11.8 % (11.5-15.5); Red Blood Count* 4.52 m/uL (4.00-5.20); White Blood Count* 3.41 K/uL (4.50-11.00)
[2025-04-15 14:03] LABS: Lymphocytes Absolute Auto 1.60 K/uL (0.90-2.90); Slide Review Reflex No
[2025-04-15 14:17] LABS: Albumin* 4.3 g/dL (3.3-5.0); Chloride* 102 mmol/L (96-114); Potassium* 3.3 mmol/L (3.6-5.1); Sodium* 135 mmol/L (135-149)
[2025-04-15 14:19] LABS: Blood Urea Nitrogen* 9 mg/dL (5-24); Creatinine* 0.6 mg/dL (0.5-1.5); Est. Creatinine Clearance* 117.57; Estimated Glomerular Filt Rate 114 ml/min
[2025-04-15 14:20] LABS: Alanine Aminotransferase* 12 U/L (4-35); Alkaline Phosphatase* 48 U/L (40-150); Aspartate Amino Transferase* 24 U/L (12-35); Bilirubin Direct* 0.2 mg/dL (0.0-0.5); Bilirubin Total* 1.1 mg/dL (0.1-1.5); Calcium* 9.2 mg/dL (8.4-10.6); Glucose* 103 mg/dL (60-115); Total Protein* 7.9 g/dL (6.0-8.3)
[2025-04-15 14:21] LABS: Anion Gap 8 mEq/L (7-15); Carbon Dioxide* 25 mmol/L (20-32)
[2025-04-15 14:27] LABS: Mono Screen* Negative (Negative)
--- NOTE | 2025-04-15 14:27 | ED.GENADULT ---
HPI - General Adult General Chief complaint: Nausea/Vomiting Stated complaint: Headache, nausea Time Seen by Provider: 04/15/25 13:09 Source: patient Mode of arrival: ambulatory Limitations: no limitations and language barrier History of Present Illness HPI narrative: 44-year-old female coming in today complaining of not feeling well for about a week. 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 She states that in the last week she has developed weakness, fatigue, achiness and epigastric abdominal discomfort. No vomiting or nausea. No diarrhea. No urinary symptoms. No fevers or chills. No changes in her appetite. No cough or shortness of breath. Related Data Home Medications ?Medication ?Instructions ?Recorded ?Confirmed rifampin 300 mg capsule 600 mg PO BID 04/15/25 04/15/25 Previous Rx's ?Medication ?Instructions ?Recorded nitrofurantoin 100 mg PO Q12H 5 days #10 caps 04/15/25 monohydrate/macrocrystals 100 mg capsule (Macrobid) Allergies Allergy/AdvReac Type Severity Reaction Status Date / Time No Known Drug Allergies Allergy Verified 04/15/25 13:01 Review of Systems Status of ROS: Reports: 10 or more systems reviewed and unremarkable except as noted in History and below [facility] Medical History No significant past medical history Surgical History No significant past surgical history Social History Smoking Status: Never smoker Do you use any of these nicotine containing products: None Second hand tobacco smoke exposure: No How often do you have a drink containing alcohol: never How often do you have six or more drinks on one occasion: Never AUDIT-C Alcohol total score: 0 Non-prescribed substance use: denies use service: No Exam Narrative: Exam Narrative: Well-nourished well-developed patient in no acute distress. Alert and oriented. Answers questions appropriately. Mood and affect are appropriate. Thoughts are goal oriented and rational. No tangential or magical thinking noted. Patient speaks in full sentences without needing to catch her breath. HEENT: Normocephalic atraumatic. Pupils are equally round reactive to light. Extraocular muscles are intact. Conjunctivae are moist without any icterus noted. Moist mucous membranes. Posterior pharynx is normal. Cardiovascular: Heart is regular rate and rhythm S1 and S2 are present without any murmurs. Lungs: Clear to auscultation bilaterally no wheezes rhonchi or rales are appreciated. Patient takes deep breaths without any discomfort. Abdomen: Soft and nontender nondistended with normal bowel sounds. No guarding or rebound. No masses or organomegaly appreciated. Minimal epigastric discomfort. Negative Choudhury sign. Extremities: Bilateral lower extremities are without edema. Normal DP and PT pulses. Skin: Well perfused without any obvious rashes. Const: Vital Signs, click to edit/add: Vital Signs - 24 hr 04/15/25 13:02 Temperature 98.7 F Pulse Rate [Pulse Oximeter] 65 Respiratory Rate 16 Blood Pressure [Ri t Upper Arm] 138/80 Pulse Oximetry 100 Oxygen Delivery Me thod Room Air Course Course ED Course: Blood work unremarkable. UA grossly positive for signs of infection. Vital Signs Vital signs: Initial Vital Signs Temperature 98.7 F 04/15/25 13:02 Temperature Source Temporal Artery Scan 04/15/25 13:02 Pulse Rate 65 04/15/25 13:02 Pulse Rhythm Regular 04/15/25 13:02 Pulse Strength 3+ Normal 04/15/25 13:02 Respiratory Rate 16 04/15/25 13:02 Blood Pressure 138/80 04/15/25 13:02 Blood Pressure Mean 99 04/15/25 13:02 Blood Pressure Position Sitting 04/15/25 13:02 Pulse Oximetry 100 04/15/25 13:02 Oxygen Delivery Method Room Air 04/15/25 13:02 Vital Signs Temperature 98.7 F 04/15/25 13:02 Pulse Rate 65 04/15/25 13:02 Respiratory Rate 16 04/15/25 13:02 Blood Pressure 138/80 04/15/25 13:02 Pulse Oximetry 100 04/15/25 13:02 Oxygen Delivery Method Room Air 04/15/25 13:02 Temperature 98.7 F 04/15/25 13:02 Pulse Rate 65 04/15/25 13:02 Respiratory Rate 16 04/15/25 13:02 Blood Pressure 138/80 04/15/25 13:02 Pulse Oximetry 100 04/15/25 13:02 Oxygen Delivery Method Room Air 04/15/25 13:02 Medical Decision Making MDM Narrative Medical decision making narrative: 44-year-old female with generalized not feeling well. Does have evidence of a UTI. Went through potential side effects of her right family been that could be contributing to her symptoms however any significant adverse reactions including hypersensitivity reactions hepatotoxicity anemia leukopenia and C diff colitis are not apparent on blood work examination as well as her symptom profile. Do want to treat her for UTI at this time. Will treat with Macrobid. Encouraged her to make an appointment with her primary for a follow-up. Lab Data Lab results reviewed: Yes I reviewed the patient's lab results Labs: Lab Results 04/15/25 04/15/25 04/15/25 Range/Units 13:35 13:36 13:48 WBC 3.41 L (4.50-11.00) K/uL RBC 4.52 (4.00-5.20) m/uL Hgb 13.7 (12.0-16.0) gm/dL Hct 40.3 (33.0-51.0) % MCV 89 (80-100) fL MCH 30 (26-34) pg MCHC 34 (32-36) gm/dL RDW Coeff of [place] 11.8 (11.5-15.5) % Plt Count 276 (140-440) K/uL Neut % (Auto) 40.4 L (42.0-72.0) % Lymph % (Auto) 47.2 H (20-44) % [place] % (Auto) 9.7 (0.0-11.0) % Eos % (Auto) 1.8 (0.0-7.0) % Baso % (Auto) 0.9 (0.0-3.0) % Neut # (Auto) 1.40 L (1.7-7.0) K/uL Lymph # (Auto) 1.60 (0.90-2.90) K/uL [place] # (Auto) 0.30 (0.00-0.90) K/UL Eos # (Auto) 0.10 (0.00-0.50) K/uL Baso # (Auto) 0.00 (0.00-0.30) K/uL Abs Immat Gran (auto) 0.00 (0.00-0.30) K/uL Imm/Tot Granulo (auto) 0.0 % Sodium 135 (135-149) mmol/L Potassium 3.3 L (3.6-5.1) mmol/L Chloride 102 (96-114) mmol/L Carbon Dioxide 25 (20-32) mmol/L Anion Gap 8 (7-15) mEq/L BUN 9 (5-24) mg/dL Creatinine 0.6 (0.5-1.5) mg/dL Estimated Creat Clear 117.57 Estimated GFR 114 ml/min Glucose 103 (60-115) mg/dL Lactate 0.7 (0.5-1.9) mmol/L Calcium 9.2 (8.4-10.6) mg/dL Total Bilirubin 1.1 (0.1-1.5) mg/dL Direct Bilirubin 0.2 (0.0-0.5) mg/dL AST 24 (12-35) U/L ALT 12 (4-35) U/L Alkaline Phosphatase 48 (40-150) U/L C-Reactive Protein < 0.5 L (0.5-1.0) mg/dL Total Protein 7.9 (6.0-8.3) g/dL Albumin 4.3 (3.3-5.0) g/dL Lipase 146 (23-300) U/L Urine Color [place] A (Yellow) Urine Appearance Clear (Clear) Urine pH 5.0 (5.0-8.5) Ur Specific [place] 1.020 (1.000-1.030) Urine Protein 2+ A (Negative) Urine Glucose (UA) Trace A (Negative) Urine Ketones 1+ A (Negative) Urine Blood Negative (Negative) Urine Nitrite Positive A (Negative) Urine Bilirubin 1+ A (Negative) Urine Urobilinogen 1.0 (0.2-1.0) Ur Leukocyte Esterase 3+ A (Negative) Urine RBC 0-2 (0-2) Urine WBC 0-2 (0-5) Ur Squamous Epith Cells Few (None-Few) Urine Bacteria Few A (None) SARS-CoV-2 (PCR) Negative SARS-CoV-2 (Negative) Monoscreen Negative (Negative) Influenza Type A (PCR) Negative PCR FLU A (Negative) Influenza Type B (PCR) Negative PCR FLU B (Negative) Discharge Plan Discharge Clinical Impression: UTI (urinary tract infection) Patient Disposition: Home, Self-Care Condition: Stable Additional Instructions: Take all antibiotics as prescribed. Follow-up with your primary care provider. Prescriptions: New nitrofurantoin monohyd/m-cryst [Macrobid] 100 mg capsule 100 mg PO Q12H 5 Days Qty: 10 0RF Rx Instructions: must administer with a meal/food No Action rifampin 300 mg capsule 600 mg PO BID Follow Up/Referrals: Alysha Farmer CNP [Primary Care Provider, Family Practice] Stand Alone Forms: [employer] Info Instructions
[2025-04-15 14:32] LABS: PCR FLU A Negative PCR FLU A (Negative); PCR FLU B Negative PCR FLU B (Negative); SARS PCR* Negative SARS-CoV-2 (Negative)
[2025-04-15 14:59] VITALS: BP 169/104; PULSE 63; RESP 16; TEMP 37.4; O2SAT 100
[2025-04-15 15:38] LABS: Ur HCG Qualitative* Negative (Negative)
== END 2025-04-15 15:03 | disposition home or self-care (01) ==
PROVIDERS: Emergency Provider Family Medicine; PCP Nurse Practitioner Family
DX: N39.0 Urinary tract infection, site not specified (principal)
CPT/HCPCS: 36415; 80048; 80076; 81001; 81025; 83605; 83690; 85025; 86140; 86308; 87086; 87636; 99284